=== PATIENT | female | born 1940 | race Caucasian/White ===

== ENCOUNTER → 2018-02-06 12:01 | Outpatient (CLI) | payer MEDICARE, SELFPAY ==
[2018-02-06 13:20] LABS: Absolute Lymphocyte Count 1.22 X10^3/ul (0.83-4.51); Absolute Neutrophil Count 3.6 X10^3/uL (2.0-7.7); Basophil# 0.02 X10^3/uL; Basophil% 0.4 % (0-1); Eosinophil# 0.01 X10^3/uL; Eosinophils% 0.2 % (0-5); Hematocrit 38.9 % (37-47); Hemoglobin 12.3 g/dl (12.0-15.0); Lymphocyte # 1.22 X10^3/ul (4.0); Lymphocyte % 22.3 % (19-41); Mean Corp Hgb Conc 31.6 g/gl (32-36); Mean Corpuscular Hgb 27.5 pg (27.0-32.0); Mean Platelet Vol. 9.8 fl (6.2-12.0); Monocyte# 0.61 X10^3/uL; Monocyte% 11.2 % (0-10); Neutrophil % 65.7 % (47-70); POSITIVE COUNT NO; POSITIVE DIFFERENTIAL NO; POSITIVE MORPHOLOGY NO; Platelet Count 267 K/mm3 (150-450); RBC Distribution Width CV 16.2 % (11.6-14.6); RBC Distribution Width SD 52.1 fl (35.1-43.9); Red Blood Count 4.47 M/mm3 (4.2-5.4); White Blood Count 5.5 K/mm3 (4.4-11.0)
[2018-02-06 13:33] LABS: ALB/GLOB Ratio 1.1 RATIO (0.9-2.4); AST(SGOT) 19 U/L (15-37); Alanine Aminotransfer ALT/SGPT 28 U/L (13-56); Albumin, Serum 3.8 g/dL (3.2-5.0); Alkaline Phosphatase 78 U/L (45-117); Anion Gap 5 (5-15); BUN 14 mg/dL (7-18); BUN/Creat Ratio 17.6 RATIO (10-20); Calcium,Total 9.3 mg/dL (8.5-10.1); Chloride 101 mmol/L (98-107); EST Glomerular Filtration Rate 74 mL/min (>60); Est Glom Filt Rate - Afr Amer 89 mL/min (>60); Globulin 3.6 g/dL (2.2-4.2); Glucose 84 mg/dL (74-106); Potassium 3.4 mmol/L (3.5-5.1); Protein, Total 7.4 g/dL (6.4-8.2); Sodium Level 141 mmol/L (136-145)
== END ==
PROVIDERS: Family Provider Internal Medicine; PCP Internal Medicine; Visit Provider Physician Assistant
DX: L30.9 Dermatitis, unspecified (principal); D48.5 Neoplasm of uncertain behavior of skin; L57.0 Actinic keratosis
CPT/HCPCS: 36415; 80053; 85025

== ENCOUNTER 2018-08-26 15:01 | Emergency (ER) | payer MEDICARE, SELFPAY ==
[2018-08-26 15:02] VITALS: BP 141/65; PULSE 81; RESP 16; TEMP 36.3; O2SAT 98; BMI 23.8
--- NOTE | 2018-08-26 16:07 | ED.DCSUM_ITS ---
- ER Visit Summary Date of Service: 08/26/18 Chief Complaint: Right lower extremity skin tear History of Present Illness: The patient is a 77 F presenting with right lower extremity skin tear. Patient was leaf blowing. The leaf blower came back and hit her right romano. She sustained a skin tear to her right lower extremity. No other injuries. She is able to ambulate. Last tetanus is unknown. Physical Examination: Vitals are stable. Patient is afebrile. Alert no acute distress. HEENT exam is unremarkable. Neck is supple. Lungs are clear and equal bilaterally. Heart is regular rate and rhythm. Extremities 13 cm V shaped skin tear right lower extremity, normal distal pulse Skin is warm and dry. No focal neurologic deficit. Remainder of exam is unremarkable. Emergency Department Course and Treatment: Patient was given tetanus IM. Wound was irrigated copiously with normal saline. Steri-Strips were applied. Wound was dressed. Discussed with Dr. Nieto and patient will follow-up in the office on Monday. Disposition: Discharge home Impression: Right lower extremity skin tear This note was generated with [employer]page dictation software. It may contain incorrect words, spelling, and punctuation that were not noted in review of the chart prior to signing ED Disposition - Plan for ED Patient: Chief Complaint: Wound Instructions: ED Avulsion Dermal Referrals: Irasema Everett MD [Primary Care Provider] - Koffi Nieto MD [STAFF PHYSICIAN] -
--- NOTE | 2018-08-26 16:10 | ED.DEP ---
ED Disposition - Plan for ED Patient: Chief Complaint: Wound Instructions: ED Avulsion Dermal Referrals: Irasema Everett MD [Primary Care Provider] - Koffi Nieto MD [STAFF PHYSICIAN] -
[2018-08-26] MEDS: Diphth,Pertuss(Acell),Tet Vac 0.5 ML Vial IM (16:22)
== END 2018-08-26 16:24 | disposition home or self-care (01) ==
LOC: ED 15:41
PROVIDERS: Emergency Provider Emergency Medicine; Family Provider Internal Medicine; PCP Internal Medicine
DX: S81.811A Laceration without foreign body, right lower leg, initial encounter (principal); M19.90 Unspecified osteoarthritis, unspecified site; Z23 Encounter for immunization; W20.8XXA Other cause of strike by thrown, projected or falling object, initial encounter; Y93.H2 Activity, gardening and landscaping; Y92.007 Garden or yard of unspecified non-institutional (private) residence as the place of occurrence of the external cause; Y99.8 Other external cause status
CPT/HCPCS: 90471; 90715; 99283

== ENCOUNTER → 2019-04-02 | Outpatient (CLI) | payer MEDICARE, SELFPAY ==
[2019-03-04 15:23] VITALS: BMI 26.6
[2019-04-02 12:45] LABS: CRP < 2.90 mg/L (0.0-3.0)
[2019-04-02 12:48] LABS: Erythrocyte Sedimentation Rate 26 mm/hr (0-30)
[2019-04-02 13:07] LABS: Absolute Lymphocyte Count 0.98 X10^3/ul (0.83-4.51); Absolute Neutrophil Count 4.7 X10^3/uL (2.0-7.7); Basophil# 0.01 X10^3/uL; Basophil% 0.2 % (0-1); Eosinophil# 0.01 X10^3/uL; Eosinophils% 0.2 % (0-5); Hematocrit 37.8 % (37-47); Hemoglobin 12.4 g/dl (12.0-15.0); Lymphocyte # 0.98 X10^3/ul (4.0); Lymphocyte % 15.2 % (19-41); Mean Corp Hgb Conc 32.8 g/gl (32-36); Mean Corpuscular Hgb 28.9 pg (27.0-32.0); Mean Corpuscular Volume 88.1 fL (81-99); Monocyte# 0.73 X10^3/uL; Monocyte% 11.3 % (0-10); Neutrophil # 4.69 X10^3/uL (2.7-7.7); Neutrophil % 72.8 % (47-70); Platelet Count 238 K/mm3 (150-450); RBC Distribution Width CV 15.6 % (11.6-14.6); RBC Distribution Width SD 50.1 fl (35.1-43.9); Red Blood Count 4.29 M/mm3 (4.2-5.4); White Blood Count 6.4 K/mm3 (4.4-11.0)
[2019-04-02 13:08] LABS: POSITIVE COUNT NO; POSITIVE DIFFERENTIAL NO; POSITIVE MORPHOLOGY NO
== END | disposition home or self-care (01) ==
PROVIDERS: Family Provider Internal Medicine; PCP Internal Medicine; Referring Provider Physician Assistant Surgical; Visit Provider Physician Assistant Surgical
DX: M25.561 Pain in right knee (principal); Z96.641 Presence of right artificial hip joint
CPT/HCPCS: 36415; 85025; 85652; 86140

== ENCOUNTER → 2019-04-15 | Outpatient (CLI) | payer MEDICARE, SELFPAY ==
[2019-03-04 15:23] VITALS: BMI 26.6
[2019-04-15 15:11] LABS: Absolute Lymphocyte Count 1.08 X10^3/ul (0.83-4.51); Absolute Neutrophil Count 4.8 X10^3/uL (2.0-7.7); Basophil# 0.01 X10^3/uL; Basophil% 0.2 % (0-1); Hematocrit 39.4 % (37-47); Lymphocyte # 1.08 X10^3/ul (4.0); Lymphocyte % 16.4 % (19-41); Mean Corpuscular Hgb 29.2 pg (27.0-32.0); Mean Corpuscular Volume 88.5 fL (81-99); Mean Platelet Vol. 9.5 fl (6.2-12.0); Monocyte# 0.69 X10^3/uL; Monocyte% 10.5 % (0-10); Neutrophil # 4.81 X10^3/uL (2.7-7.7); Neutrophil % 72.7 % (47-70); Platelet Count 219 K/mm3 (150-450); RBC Distribution Width CV 15.2 % (11.6-14.6); RBC Distribution Width SD 49.1 fl (35.1-43.9); Red Blood Count 4.45 M/mm3 (4.2-5.4); White Blood Count 6.6 K/mm3 (4.4-11.0)
[2019-04-15 15:12] LABS: POSITIVE COUNT NO; POSITIVE DIFFERENTIAL NO; POSITIVE MORPHOLOGY NO
[2019-04-15 15:27] LABS: AST(SGOT) 18 U/L (15-37); Alanine Aminotransfer ALT/SGPT 26 U/L (13-56); Albumin, Serum 3.8 g/dL (3.2-5.0); Alkaline Phosphatase 99 U/L (45-117); Anion Gap 4 (5-15); BUN 20 mg/dL (7-18); BUN/Creat Ratio 20.5 RATIO (10-20); Calcium,Total 9.5 mg/dL (8.5-10.1); Chloride 104 mmol/L (98-107); Creatinine, Serum 0.98 mg/dL (0.55-1.02); EST Glomerular Filtration Rate 58 mL/min (>60); Est Glom Filt Rate - Afr Amer 70 mL/min (>60); Globulin 3.7 g/dL (2.2-4.2); Glucose 97 mg/dL (74-106); Potassium 3.7 mmol/L (3.5-5.1); Protein, Total 7.5 g/dL (6.4-8.2); Sodium Level 139 mmol/L (136-145)
== END | disposition home or self-care (01) ==
LOC: MTLAB 14:40
PROVIDERS: Family Provider Internal Medicine; PCP Internal Medicine; Referring Provider Physician Assistant; Visit Provider Physician Assistant
DX: R23.3 Spontaneous ecchymoses (principal)
CPT/HCPCS: 36415; 80053; 85025; 85379

== ENCOUNTER 2019-10-01 09:20 | Day surgery (SDC) | payer MEDICARE, SELFPAY ==
--- NOTE | 2019-09-04 02:07 | HP_ITS ---
Intake Vital Signs 09/04/19 Body Mass Index (BMI) 26.6 09/04/19 Height 5 ft 5 in 09/04/19 Weight: 154 lb 09/04/19 Body Mass Index (BMI) 25.6 09/04/19 Blood Pressure 179/65 H 09/04/19 Blood Pressure Location Rt brachial 09/04/19 Blood Pressure Position Sitting 09/04/19 Respiratory Rate 16 09/04/19 Pulse Rate 57 L 09/04/19 Pulse Source Monitor 09/04/19 Temperature 98.5 F 09/04/19 Temperature Source Oral 09/04/19 Pulse Ox 99 09/04/19 Oxygen Delivery Method room air 08/20/19 Body Mass Index (BMI) 26.6 Intake Visit Reasons: C-Scope Consult Animal Attendants And Trainers Required: No Is patient in pain?: No Allergies amlodipine Allergy (Severe, Verified 09/04/19 13:56) Swelling lovastatin Allergy (Severe, Verified 09/04/19 13:56) myalgias celecoxib [From Celebrex] Allergy (Verified 09/04/19 13:56) Rash terbinafine HCl [From Lamisil] Allergy (Verified 09/04/19 13:56) Diarrhea acetaminophen [From Percocet] Adverse Reaction (Severe, Verified 09/04/19 13:56) itching lisinopril Adverse Reaction (Severe, Verified 09/04/19 13:56) Cough oxycodone [From Percocet] Adverse Reaction (Severe, Verified 09/04/19 13:56) itching Sulfa (Sulfonamide Antibiotics) Adverse Reaction (Verified 09/04/19 13:56) COUGH,BITTER TASTE sulfasalazine Adverse Reaction (Verified 09/04/19 13:56) Upset Stomach tramadol HCl [From Ultram] Adverse Reaction (Verified 09/04/19 13:56) DIZZY venlafaxine HCl [From Effexor] Adverse Reaction (Verified 09/04/19 13:56) HEARD NOISES FOR A YEAR Medications Hydrochlorothiazide 25 mg PO DAILY 04/08/14 [History Confirmed 09/04/19] Magnesium 250 mg PO DAILY 04/08/14 [History Confirmed 09/04/19] Calcium Citrate/Vitamin D3 [Hm Calcium Citrate-Vit D3 Tab] 1 ea PO BID 10/14/14 [History Confirmed 09/04/19] Tizanidine HCl 4 mg PO DINNER 10/14/14 [History Confirmed 09/04/19] Aspirin 81 mg PO DINNER 07/11/17 [History Confirmed 09/04/19] potassium chloride ER 20 mEq tablet,extended release(part/cryst) 10 meq PO DAILY tab 02/23/18 [History Confirmed 09/04/19] atorvastatin 80 mg tablet 80 mg PO QHS #90 tab 12/17/18 [Rx Confirmed 09/04/19] budesonide DR - ER 3 mg capsule,delayed,extended release 9 mg PO DINNER ea 03/04/19 [History Confirmed 09/04/19] losartan 100 mg tablet 100 mg PO DAILY #90 tab 04/02/19 [Rx Confirmed 09/04/19] ipratropium bromide 42 mcg (0.06 %) nasal spray INTRANASAL #15 09/04/19 [History Confirmed 09/04/19] sertraline 100 mg tablet PO #90 tab 09/04/19 [History Confirmed 09/04/19] [facility] Medical History Essential hypertension (Chronic) Long-term use of high-risk medication (Acute) Atherosclerotic heart disease of [place] coronary artery without angina pectoris (Chronic) Hyperlipidemia (Chronic) Closed right hip fracture (Acute) Hiatal hernia (Acute) History of DVT (deep vein thrombosis) (Acute) Idiopathic pulmonary hypertension (Acute) Osteoarthritis (Acute) Right wrist fracture (Acute) TIA (transient ischemic attack) (Acute) GERD (gastroesophageal reflux disease) (Chronic) Microscopic colitis (Chronic) Rheumatoid arthritis (Chronic) Skin cancer (Chronic) HTN (hypertension) (Inactive) Surgical History Presence of stent in coronary artery (Chronic ~06/04/08) History of Massimo fundoplication (Chronic) History of arthroscopy of right knee (Resolved) History of right hip replacement (Resolved) History of right knee joint replacement (Resolved) History of tonsillectomy (Resolved) Postsurgical percutaneous transluminal coronary angioplasty (PTCA) status (Resolved ~06/04/08) Family History Father CVA (cerebral vascular accident) Myocardial infarction Mother Heart disease Brother Myocardial infarction Brother Myocardial infarction, Onset Age: 57 Social History (Updated 09/04/19 @ 14:07 by Tommy Lagos MD) Smoking Status: Never smoker alcohol intake: never substance use type: does not use caffeine: Yes what type of physical activity do you participate in: aerobics frequency: 3-4 times per week HPI HPI HPI: HUY STOKES, is a 78 F who presents to the office today for HPI HPI Surgical H&P: Yes HPI: HUY STOKES, is a 78 F who presents to the office today for surveillance colonoscopy. The patient has a family history with a first-degree relative who had colon cancer and a daughter. She has personally had multiple colon polyps. Her most recent colonoscopy that was performed by Dr. Tran on October 11, 2016 by his account revealed 4 sessile polyps in the proximal ascendin to 6 mm in size. Tubular adenomas of pathology. He also took random colonic biopsies which did not show active colitis at that time. The patient has a known history of collagenous colitis and she is medication dependent. Currently she is denying any symptoms. No current bright red blood per rectum or melena. No current abdominal pain. She states that she has had previously a significant amount of discomfort with the procedures. Previously she has had some mild dehydration for which we have had her come in a day had a time for some IV hydration. She states that her most recent one with Dr. Tran proceeded with monitored anesthesia care and no additional IV hydration and she did well. ROS General General: No weight change, appetite, fatigue, colon cancer, breast cancer or weakness HEENT HEENT: Yes eye surgery; no difficulty swallowing, eye injury, swollen glands or hoarseness Endo Endocrine: No thyroid disease, diabetes mellitus, thyroid cancer, Hair loss, heat intolerance or cold intolerance Skin Skin: No rash or changing moles Musc Musculoskeletal: Yes arthritis; no back problems, rheumatoid arthritis, gout or joint pain Cardio Cardiovascular: Yes heart disease, high blood pressure and heart stent; no murmur, pacemaker, atrial fibrillation, heart attack, palpitations, shortness of breat with exertion or chest pain Psych Psychiatric: No depression, anxiety or hearing voices Resp Respiratory: No shortness of breath, No sleep apnea, Yes cough, No COPD, No asthma, No emphysema, No wheezing Gastro Gastrointestinal: No abdominal pain, No nausea or vomiting, No diarrhea, No constipation, No blood in stool, No acid reflux, No hemorrhoids, No ulcers, No gallbladder problem, No black,tarry stools Fly Hematologic: Yes blood thinners, No blood disorders, No bleeding, No anemia, Yes blood clots Neuro Neurologic: No system reviewed and no additional complaints, except as docu, No as per HPI, No abnormal walking, No abnormal hearing, No abnormal movements, No abnormal speech, No behavioral changes, No burning sensations, No confusion, No seizure-like activity, No unsteadiness, No dizziness, No localized weakness, No frequent falls, No headache(s), No lack of coordination, No loss of vision, No memory loss, No numbness, No other visual disturbances, No radiating pain, No restless legs, No sensory deficit, No fainting, No tingling, No tremor(s), No weakness, No other Exam Const General: cooperative, comfortable, no acute distress Nutritional Appearance: average body habitus Orientation: awake Chest Chest palpation & inspection: normal inspection of the chest Resp Effort & Inspection: normal respiratory effort Auscultation: clear to auscultation bilaterally Cardio Rate: regular rate Rhythm: regular rhythm Heart Sounds: no murmurs Other: Soft 2/6 soft ejection murmur GI Palpation: soft, no hepatosplenomegaly Neuro Cognition: normal cognition Extrem Other: Moderate bilateral lower extremity swelling Psych Affect: normal affect Assessment & Plan Problems 1. Personal history of colonic polyps Z86.010 2. Family history of colon cancer Z80.0 Plan I recommend to the patient is screening colonoscopy with possible biopsy or polypectomy as indicated. Because of her history of collagenous colitis will consider random colonic biopsies. We will utilize monitored anesthesia care because of the patient's notation of discomfort with the procedure. She is aware of the technique, benefits, risks, alternatives. She has had an opportunity to ask and have questions answered. We will schedule and proceed at her discretion. I very much appreciate the kind opportunity of assisting with her surgical care. CC: Dr. Irasema Lagos M.D., F.A.C.S. Coding Level of Care Code Off vis,est,level 2 Diagnoses Personal history of colonic polyps Z86.010 Family history of colon cancer Z80.0 09/04/19 1408 <Electronically signed by Tommy dutton MD> Date _ Tommy Lagos MD I have re-examined the patient. There are no clinical changes since date of exam.
[2019-09-04 14:07] VITALS: BMI 26.6
--- NOTE | 2019-10-01 | COLBX_PTH ---
PATIENT: HUY STOKES LOC: EN U#:[id number] AGE/SX: 79/F ROOM: RE10/01/[address]: Dr. Tommy Lagos MD : 1940 BED: DIS: 10/01/2019 SPEC #: [id number] RECD: 10/01/19 13:20 STATUS: RETA RICARDO #: [id number] ASUNCION: 10/01/19 00:[address]: Tommy Lagos DEPT: SURGICAL PATHOLOGY RECD BY: Skyler Stewart ENTERED: 10/01/19 13:21 SP TYPE: COLON BX RADHA DR: Dr. Irasema Everett MD Tissues: A - COLON BIOPSY B - Ascending colon Procedures: Surgery Specimen Level IV HEADER OPERATION: Colonoscopy (MAC) PRE-OP DIAGNOSIS: Colon polyps, family history colon cancer TISSUE SUBMITTED: A - Random colon biopsies, B - Mid ascending colon polyp MICROSCOPIC DIAGNOSIS A. Colon, random biopsy: Fragments of colonic mucosa, no pathologic diagnosis. B. Mid ascending colon polyp, biopsy: Fragments of hyperplastic polyp. BECCA:lizbeth 10/02/19 MICROSCOPIC DESCRIPTION Slides are reviewed. GROSS DESCRIPTION A - Received in fixative is one container labeled with the patient's name and designated random colon biopsy. The specimen consists of multiple irregular fragments of light west soft tissue that in aggregate measure 1.5 x 0.3 x 0.1 cm. The specimen is totally submitted in one cassette. B - Received in fixative is one container labeled with the patient's name and designated mid ascending colon polyp. The specimen consists of multiple irregular fragments of light west soft tissue that in aggregate measure 2 x 0.5 x 0.1 cm. The specimen is totally submitted in one cassette. / BECCA:lizbeth 10/01/19 TC:1 [facility]: [id number] x2
[2019-10-01 09:52] VITALS: BP 148/50; PULSE 50; RESP 16; TEMP 36.3; O2SAT 99; BMI 24.5
[2019-10-01] MEDS: Lactated Ringers 1,000 ML 100 ML IV (10:03)
[2019-10-01 11:13] VITALS: BP 116/58; BP 148/50; PULSE 89; RESP 16; TEMP 36.6; O2SAT 100
--- NOTE | 2019-10-01 11:14 | OP.COLON_ITS ---
Patient Name: Corrine Gutiérrez Procedure Date: 10/01/2019 10:34 AM Date of : 1940 Age: 79 Procedure: Colonoscopy Indications: High risk colon cancer surveillance: Personal history of colonic polyps, Family history of colon cancer in a first-degree relative Providers: Tommy Lagos MD Referring MD: Irasema Everett Medicines: See the Anesthesia note for documentation of the administered medications Patient Profile: Last Colonoscopy: September 2016. Complications: No immediate complications. Procedure: Pre-Anesthesia Assessment: - Prior to the procedure, a History and Physical was performed, and patient medications and allergies were reviewed. The patient's tolerance of previous anesthesia was also reviewed. The risks and benefits of the procedure and the sedation options and risks were discussed with the patient. All questions were answered, and informed consent was obtained. Prior Anticoagulants: The patient has taken no previous anticoagulant or antiplatelet agents. ASA Grade Assessment: II - A patient with mild systemic disease. After reviewing the risks and benefits, the patient was deemed in satisfactory condition to undergo the procedure. After I obtained informed consent, the scope was passed under direct vision. Throughout the procedure, the patient's blood pressure, pulse, and oxygen saturations were monitored continuously. The Colonoscope was introduced through the anus and advanced to the cecum, identified by appendiceal orifice and ileocecal valve. The colonoscopy was performed with moderate difficulty due to a tortuous colon. Successful completion of the procedure was aided by increasing the dose of sedation medication. The patient tolerated the procedure well. The quality of the bowel preparation was good. Scope In: 10:42:12 AM Scope Withdrawal Time 0 hours 17 minutes 18 seconds Scope Out: 11:08:52 AM Total Procedure Duration Time 0 hours 26 minutes 40 seconds Findings: Hemorrhoids were found on perianal exam. A 14 mm polyp was found in the mid ascending colon. The polyp was sessile. The polyp was removed with a cold snare. Resection was complete, but the polyp tissue was only partially retrieved. Scattered diverticula were found in the sigmoid colon. Biopsies for histology were taken with a cold forceps from the entire colon for evaluation of microscopic colitis. Impression: - Hemorrhoids found on perianal exam. - One 14 mm polyp in the mid ascending colon, removed with a cold snare. Majority resection with two hemostatic clips placed on small remainder. Specimen was retrieved. - Diverticulosis in the sigmoid colon. - Biopsies were taken with a cold forceps from the entire colon for evaluation of microscopic colitis. Recommendation: - Discharge patient to home. - Resume previous diet. - Continue present medications. - Repeat colonoscopy in 5 years for surveillance based on pathology results. - Telephone my office for pathology results in 1 week. Procedure Code(s): --- Professional --- 28291, Colonoscopy, flexible; with removal of tumor(s), polyp(s), or other lesion(s) by snare technique 66784, 59, Colonoscopy, flexible; with biopsy, single or multiple Diagnosis Code(s): --- Professional --- Z86.010, Personal history of colonic polyps K64.9, Unspecified hemorrhoids D12.2, Benign neoplasm of ascending colon Z80.0, Family history of malignant neoplasm of digestive organs K57.30, Diverticulosis of large intestine without perforation or abscess without bleeding CPT copyright 2017 [employer]. All rights reserved. The codes documented in this report are preliminary and upon processes chemical design engineer review may be revised to meet current compliance requirements. Tommy Lagos MD 10/01/2019 11:14:34 AM This report has been signed electronically. Number of Addenda: 0 Note Initiated On: 10/01/2019 10:34 AM
[2019-10-01 11:20] VITALS: BP 130/61; BP 148/50; PULSE 85; RESP 16; O2SAT 100
[2019-10-01 11:25] VITALS: BP 139/65; BP 148/50; PULSE 75; RESP 16; O2SAT 100
[2019-10-01 11:27] VITALS: BP 148/50; BP 149/64; PULSE 76; RESP 16; TEMP 37.1; O2SAT 100
[2019-10-01 12:01] VITALS: BP 148/50
== END 2019-10-01 12:01 | disposition home or self-care (01) ==
LOC: EN 09:22 → AC 09:31
PROVIDERS: Family Provider Internal Medicine; PCP Internal Medicine; Referring Provider Internal Medicine; Visit Provider Surgery
PROC: 0DJD8ZZ Inspection of Lower Intestinal Tract, Via Natural or Artificial Opening Endoscopic (ICD-10-PCS; CPT 45378; principal; 2019-10-01 10:25)
DX: Z12.11 Encounter for screening for malignant neoplasm of colon (principal); K63.5 Polyp of colon; K64.9 Unspecified hemorrhoids; K57.30 Diverticulosis of large intestine without perforation or abscess without bleeding; K52.831 Collagenous colitis; K21.9 Gastro-esophageal reflux disease without esophagitis; Z86.010 Personal history of colon polyps; Z80.0 Family history of malignant neoplasm of digestive organs; I10 Essential (primary) hypertension; I25.10 Atherosclerotic heart disease of native coronary artery without angina pectoris; E78.5 Hyperlipidemia, unspecified; M19.90 Unspecified osteoarthritis, unspecified site; M06.9 Rheumatoid arthritis, unspecified; I27.0 Primary pulmonary hypertension; Z86.718 Personal history of other venous thrombosis and embolism; Z86.73 Personal history of transient ischemic attack (TIA), and cerebral infarction without residual deficits; Z85.828 Personal history of other malignant neoplasm of skin; Z95.5 Presence of coronary angioplasty implant and graft; Z79.82 Long term (current) use of aspirin; Z79.899 Other long term (current) drug therapy
CPT/HCPCS: 45380; 88305; J7120

== ENCOUNTER 2019-11-04 16:41 | Emergency (ER) | payer MEDICARE, SELFPAY ==
[2019-11-04 16:41] VITALS: BP 155/60; PULSE 50; RESP 16; TEMP 36.5; O2SAT 100
[2019-11-04 16:42] VITALS: BP 155/60; PULSE 58; RESP 16; TEMP 36.5; O2SAT 100; BMI 25.9
--- NOTE | 2019-11-04 18:01 | RAD_ITS ---
STUDY: X-RAY - RIGHT ELBOW REASON FOR EXAM: Female, 79 years old. FALL, PAIN WORST IN ELBOW, WITH ROTATION TECHNIQUE: 3 view(s) of the elbow. COMPARISON: None. FINDINGS: An intra-articular fracture of the radial head is present. The proximal ulna and distal humerus are intact. No dislocation. Calcific tendinitis of the triceps. Elevation of the anterior fat pad. RAD/Elbow min 3 Views IMPRESSION: An intra-articular fracture of the radial head is present. Electronically Signed: Josemanuel Ness MD at 18:47 EST Tel , Service support ,
--- NOTE | 2019-11-04 18:02 | RAD_ITS ---
STUDY: X-RAY - LEFT WRIST REASON FOR EXAM: Female, 79 years old. FALL, PAIN TECHNIQUE: 3 view(s) of the wrist were obtained. COMPARISON: None. FINDINGS: Normal visualized distal radius and ulna. Normal radiocarpal articulation. There is degenerative arthrosis of the distal radioulnar articulation. Normal carpal bones. Normal carpal articulations. There is degenerative arthrosis of the carpometacarpal articulation of the thumb. Normal second through fifth carpometacarpal articulations. Normal visualized metacarpal bones. Calcifications of the triangle fibrocartilage. RAD/Wrist min 3 Views IMPRESSION: No acute osseous injury is evident. Electronically Signed: Josemanuel Ness MD at 18:52 EST Tel , Service support ,
--- NOTE | 2019-11-04 18:02 | CT_ITS ---
STUDY: CT BRAIN WITHOUT CONTRAST REASON FOR EXAM: Female, 79 years old. FALL RADIATION DOSAGE (If Supplied By Facility): CTDIvol = ( 60.81 ) mGy, DLP = ( 1044.28 ) mGycm TECHNIQUE: Transaxial CT imaging of the brain was performed without administration of intravenous contrast material. Individualized dose optimization techniques were used for this CT. COMPARISON: No relevant priors. FINDINGS: Normal soft tissue structures. Normal calvarium. Bilateral nasal bone fractures. Bilateral lens replacements. Normal size ventricles and extra-axial spaces for the patient''s age. There are areas of decreased attenuation within the white matter tracts of the supratentorial brain, consistent with microvascular disease changes. Age-related changes of the basal ganglia. Normal brainstem. Normal cerebellum. There is no intracranial hemorrhage. There are no findings of an acute ischemic infarction. Normal visualized paranasal sinuses. CT/Brain/Head without Contrast IMPRESSION: No calvarium fracture or intracranial hemorrhage. Bilateral nasal bone fractures. Electronically Signed: Josemanuel Ness MD at 18:37 EST Tel , Service support ,
--- NOTE | 2019-11-04 18:02 | RAD_ITS ---
STUDY: X-RAY - RIGHT KNEE REASON FOR EXAM: Female, 79 years old. FALL, PAIN AND BRUISING -- HX OF REPLACEMENT TECHNIQUE: 4 view(s) of the knee. COMPARISON: None. FINDINGS: Total knee arthroplasty with normal alignment. No acute fractures or dislocations. Soft tissues are intact. RAD/Knee 4 or More Views IMPRESSION: No acute osseous injury is evident. Electronically Signed: Josemanuel Ness MD at 18:51 EST Tel , Service support ,
--- NOTE | 2019-11-04 18:03 | CT_ITS ---
STUDY: CT CERVICAL SPINE WITHOUT CONTRAST REASON FOR EXAM: Female, 79 years old. FALL RADIATION DOSAGE (If Supplied By Facility): CTDIvol = ( 18.50 ) mGy, DLP = ( 381.41 ) mGycm TECHNIQUE: High resolution transaxial imaging was performed without contrast material. Sagittal and coronal images were reconstructed. Individualized dose optimization techniques were used for this CT. COMPARISON: None FINDINGS: Craniocervical junction is intact. Degenerative changes are present involving the atlantodental articulation. Normal odontoid process. Alignment is within normal limits. Multilevel degenerative disease is present. No acute fractures or dislocations are seen. Carotid calcifications. 14 mm left thyroid nodule. Consider ultrasound follow-up if clinically indicated. CT/Spine Cervical without Contras IMPRESSION: No acute osseous injury is evident. 14 mm left thyroid nodule. Consider ultrasound follow-up if clinically indicated. Comment: MRI is more sensitive than CT in detecting cord injury, ligament injury, and epidural hematoma. If there is continued clinical concern for any of these entities, MRI correlation should be considered if possible. Electronically Signed: Josemanuel Ness MD at 18:44 EST Tel , Service support ,
--- NOTE | 2019-11-04 18:03 | ED.VIS.GEN ---
History of Present Illness Chief Complaint: Trauma Informant: Patient Onset: Today Current Severity: Mild Maximum Severity: Moderate Narrative: Patient presents after a fall. She states she tripped on a rug in her basement and fell face forward onto concrete. She was wearing glasses at the time. She did not get knocked out. She did have a significant nosebleed and put cotton balls in each nare. She is complaining of mild head and neck pain along with pain to her right elbow, right knee, and left wrist. She is not on anticoagulants. Injury occurred 6 hours prior to my evaluation. - Past Medical History (1) Personal history of colonic polyps Status: Chronic (2) Atherosclerotic heart disease of [place] coronary artery without angina pectoris Status: Chronic Comment: PTCA/Stent to mid LAD 06/04/08 (3) Essential hypertension Status: Chronic (4) Hyperlipidemia Status: Chronic (5) Presence of stent in coronary artery Status: Chronic Comment: PTCA/Stent to mid LAD 06/04/08 Past Medical History - Allergies and Home Meds Allergies/Adverse Reactions: Allergies amlodipine Allergy (Severe, Verified 11/04/19 17:47) Swelling lovastatin Allergy (Severe, Verified 11/04/19 17:47) myalgias celecoxib [From Celebrex] Allergy (Verified 11/04/19 17:47) Rash terbinafine HCl [From Lamisil] Allergy (Verified 11/04/19 17:47) Diarrhea acetaminophen [From Percocet] Adverse Reaction (Severe, Verified 11/04/19 17:47) itching lisinopril Adverse Reaction (Severe, Verified 11/04/19 17:47) Cough oxycodone [From Percocet] Adverse Reaction (Severe, Verified 11/04/19 17:47) itching Sulfa (Sulfonamide Antibiotics) Adverse Reaction (Verified 11/04/19 17:47) COUGH,BITTER TASTE sulfasalazine Adverse Reaction (Verified 11/04/19 17:47) Upset Stomach COUGH tramadol HCl [From Ultram] Adverse Reaction (Verified 11/04/19 17:47) DIZZY venlafaxine HCl [From Effexor] Adverse Reaction (Verified 11/04/19 17:47) HEARD NOISES FOR A YEAR COUGH Primary Care Physician: Leonel Shrestha MD [STAFF PHYSICIAN] - 3-5 Days Irasema Everett MD [Primary Care Provider] - Jerod Christopher DO [STAFF PHYSICIAN] - 5-7 Days Prior records reviewed: Yes Surgical History: adenoidectomy, total knee arthroplasty, tonsillectomy, - Smoking Status: Never smoker - Family History Paternal Family History: Family History (Last Reviewed 09/04/19 @ 13:54 by Sonia Olivo) Father CVA (cerebral vascular accident) Myocardial infarction Mother Heart disease Brother Myocardial infarction Brother Myocardial infarction, Onset Age: 57 Family History: Reports: Heart Disease Maternal Family History: Family History (Last Reviewed 09/04/19 @ 13:54 by Sonia Olivo) Father CVA (cerebral vascular accident) Myocardial infarction Mother Heart disease Brother Myocardial infarction Brother Myocardial infarction, Onset Age: 57 Family History: Reports: Heart Disease Review of Systems General: Denies: Chills, Fever Eyes: Denies: Visual changes - bilaterally ENT: Reports: - - Nosebleed. Denies: Bilateral ear pain Cardiovascular: Denies: Chest pain Respiratory: Denies: Dyspnea, Cough Gastrointestinal: Denies: Abdominal pain, Nausea, Vomiting, Diarrhea Genitourinary: Denies: Dysuria Musculoskeletal: Reports: Arthralgias, Neck pain, Extremity Pain Neurological: Reports: Headache Hematologic: Reports: Easy bruising Allergy: Denies: Uticaria Physical Exam Vital Signs/Narrative: Vital Signs Temp Pulse Resp BP Pulse Ox 11/04/19 16:42 97.7 F L 58 L 16 155/60 H 100 11/04/19 16:41 97.7 F L 50 L 16 155/60 H 100 Inital Vital Signs reviewed: Yes General: Well nourished, Well developed Head: - - Inferior orbital ecchymosis bilaterally. Extraocular movements are intact. Superficial abrasions noted over the nasal bridge. Cotton balls are noted in each nare. Portion of cottonball that is visible is clean with no saturation of blood. Eyes: Perrl, EOMI ENT: Moist mucous membranes Neck: Supple, - - Mild C-spine tenderness. Cardiovascular: Regular rate, Regular rhythm Respiratory: No distress, CTA bilaterally, Chest nontender Abdomen: Soft, Nontender Extremities: - - Right upper extremity: Tenderness location at the right elbow, worse along the radial head. She does have pain with pronation and supination. No tenderness at the wrist or shoulder. Right lower extremity: Ecchymosis noted over the anterior right knee. Good range of motion. Left upper extremity: Mild tenderness around the left wrist. No edema or ecchymosis noted. Neurological: Alert, Oriented x3 Psychological: Normal affect Diagnostic/Tx/Re-eval Impressions Elbow X-Ray 11/04/19 18:01 IMPRESSION: An intra-articular fracture of the radial head is present. Electronically Signed: Josemanuel Ness MD at 18:47 EST Tel , Service support , Brain CT 11/04/19 18:02 IMPRESSION: No calvarium fracture or intracranial hemorrhage. Bilateral nasal bone fractures. Electronically Signed: Josemanuel Ness MD at 18:37 EST Tel , Service support , Knee X-Ray 11/04/19 18:02 IMPRESSION: No acute osseous injury is evident. Electronically Signed: Josemanuel Ness MD at 18:51 EST Tel , Service support , Wrist X-Ray 11/04/19 18:02 IMPRESSION: No acute osseous injury is evident. Electronically Signed: Josemanuel Ness MD at 18:52 EST Tel , Service support , Cervical Spine CT 11/04/19 18:03 IMPRESSION: No acute osseous injury is evident. 14 mm left thyroid nodule. Consider ultrasound follow-up if clinically indicated. Comment: MRI is more sensitive than CT in detecting cord injury, ligament injury, and epidural hematoma. If there is continued clinical concern for any of these entities, MRI correlation should be considered if possible. Electronically Signed: Josemanuel Ness MD at 18:44 EST Tel , Service support , 11/04/19 18:01 Elbow min 3 Views [RAD] Stat 11/04/19 18:02 CT Head [Brain/Head without Contrast] [CT] Stat Knee 4 or More Views [RAD] Stat Wrist min 3 Views [RAD] Stat 11/04/19 18:03 CT Cervical [Spine Cervical without Contras] [CT] Stat - Medical Decision Making Patient is given morphine IM for pain control. Test results are discussed with patient and family at bedside. Right upper extremity is placed in a posterior splint plus sugar tong. Following splint application she has good cap refill distally with good sensation. She will follow-up Dr. Christopher or Dr. Amaro whom she has seen in the past. Cotton balls are removed from her nares. She has very minimal bleeding but no definitive source can be visualized. Merisel packing with the plastic tube to the center is placed bilaterally. Patient is able to breathe through her nose with this without difficulty. No further bleeding is noted. Because she does have epistaxis with nasal bone fractures she is covered with an antibiotic. She will follow-up with ENT. Patient for Keflex as well as [place]um [place] was sent to local pharmacy. ED Disposition - Plan for ED Patient: Disposition: Home or Assisted Living Diagnosis: Radial head fracture, closed, Nasal bone fractures, Epistaxis due to trauma Instructions: Elbow Fracture, FALL, Mechanical, FRACTURE, Nose (with X-Ray), HEAD INJURY, No Wake-Up (Adult), NASAL PACKING, Anterior (Removable) Prescriptions: Cephalexin [Keflex] 500 mg PO Q12 #14 cap Transmission Status: Received by DAVID VIDAL-[address] PAZ Hydrocodone Bitart/Apap 5-325 [Alum [place] 5MG-325MG] 1 tab PO Q6H PRN PRN 3 Days #10 tab PRN Reason: Pain Transmission Status: Received by DAVID VIDAL-[address] BALDEV Referrals: Irasema Everett MD [Primary Care Provider] - Leonel Shrestha MD [STAFF PHYSICIAN] - 3-5 Days Jerod Christopher DO [STAFF PHYSICIAN] - 5-7 Days
[2019-11-04] MEDS: Morphine 4 MG/ML Syringe IM ×2 (18:47→21:37)
[2019-11-04 20:41] VITALS: BP 148/62; PULSE 59; RESP 16; O2SAT 97
[2019-11-04] MEDS: Oxymetazoline 0.05% 1 SPRAY SPRAY.BTL 2 SPRAY NASAL (21:37)
[2019-11-04] MEDS: Cephalexin 250 MG Capsule 500 MG PO (21:37)
[2019-11-04 22:07] VITALS: BP 146/72; PULSE 55; RESP 17; O2SAT 96
--- NOTE | 2019-11-04 22:08 | ED.RN ---
PT OBSERVED ON SHOT TIME FOR GREATER THAN 15 MINUTES. NO REACTION NOTED BY THIS NURSE. PT D/C.
== END 2019-11-04 22:09 | disposition home or self-care (01) ==
PROVIDERS: Emergency Provider Emergency Medicine; PCP Internal Medicine
DX: S02.2XXA Fracture of nasal bones, initial encounter for closed fracture (principal); S52.121A Displaced fracture of head of right radius, initial encounter for closed fracture; S80.01XA Contusion of right knee, initial encounter; W18.09XA Striking against other object with subsequent fall, initial encounter; Y93.9 Activity, unspecified; Y92.008 Other place in unspecified non-institutional (private) residence as the place of occurrence of the external cause; R04.0 Epistaxis; I25.10 Atherosclerotic heart disease of native coronary artery without angina pectoris; I10 Essential (primary) hypertension; E78.5 Hyperlipidemia, unspecified; Z95.5 Presence of coronary angioplasty implant and graft
CPT/HCPCS: 29105; 30901; 29405; 70450; 72125; 73080; 73110; 73564; 96372; 99283

== ENCOUNTER → 2019-12-04 09:20 | Outpatient (CLI) | payer MEDICARE, SELFPAY ==
[2019-11-04 16:42] VITALS: BMI 25.9
--- NOTE | 2019-12-04 09:28 | US_ITS ---
HISTORY: NODULES COMPARISON: 10/19/2017 TECHNIQUE: Grayscale and color Doppler sonography of the thyroid gland. FINDINGS: RIGHT LOBE: 4.9 x 2.1 x 1.7 cm LEFT LOBE: 4.3 x 2.0 x 1.7 cm ISTHMUS: 3 mm Heterogeneous thyroid. Heterogeneous right lobe nodule measuring 1.5 x 0.6 x 1.2 cm it is smoothly marginated without distinct calcification with isoechoic and hypoechoic components, previously measuring 1.7 x 0.6 x 1.2 cm. TIRADS 4. Mildly hypoechoic, smoothly marginated, noncalcified 9 x 4 x 6 mm right thyroid lobe nodule, previously 9 x 5 x 7 mm.TIRADS 4. Small right thyroid lobe nodule cyst measuring 6 mm, previously 5 mm. TIRADS 1. Mildly hypoechoic, smoothly marginated, noncalcified right thyroid lobe nodule measuring 9 x 8 x 7 mm, previously 10 x 10 x 6 mm. TIRADS 4. Slightly hypoechoic, smoothly marginated nodule, noncalcified in the right inferior thyroid lobe measures 6 x 4 x 6 mm, previously 7 x 4 x 7 mm. TIRADS 4. Heterogeneous mixed solid and cystic, smoothly marginated left thyroid lobe nodule without definite calcification measuring 1.9 x 1.4 x 1.6 cm, previously 1.6 x 1.2 x 1.2 cm. TIRADS 3. Mildly hypoechoic, smoothly marginated, noncalcified left thyroid lobe nodule measuring 1.1 x 0.9 x 0.9 cm, previously 1.0 x 1.0 x 0.7 cm. TIRADS 4. US/Thyroid IMPRESSION: Mild increase in size of mixed solid and cystic left thyroid lobe nodule. Minimal change in multiple bilateral thyroid nodules otherwise. at 0507 Reported and signed by: Yasmin Ye MD Electronically Signed: Yasmin Ye MD at 5:07 EST Tel , Service support ,
== END ==
PROVIDERS: PCP Internal Medicine; Referring Provider Surgery; Visit Provider Surgery
DX: E04.1 Nontoxic single thyroid nodule (principal)
CPT/HCPCS: 76536

== ENCOUNTER → 2020-01-01 16:45 | Outpatient (CLI) | payer MEDICARE, SELFPAY ==
--- NOTE | 2020-01-01 | ASPS_PTH ---
PATIENT: HUY STOKES LOC: [facility] U#:[id number] AGE/SX: 85/F ROOM: RE01/01/[address]: Dr. Tommy Lagos MD : 1940 BED: DIS: SPEC #: [id number] RECD: 01/01/20 16:40 STATUS: RETA RETerrence #: [id number] ASUNCION: 01/01/20 00:[address]: Tommy Lagos DEPT: CYTOLOGY RECD BY: Skyler Stewart ENTERED: 01/02/20 07:35 SP TYPE: ASPIRATION OTHR DR: Dr. Irasema Everett MD Tissues: A - Thyroid gland, NOS B - Thyroid gland, NOS Procedures: Special Stain Group II Cytology Other HEADER OPERATION: Bilateral thyroid FNA PRE-OP DIAGNOSIS: Bilateral thyroid nodules TISSUE SUBMITTED: A - Right thyroid slides x6, B - Left thyroid slides x4 DIAGNOSIS CYTOLOGY A. Right thyroid nodule, FNA (smears): A few clusters of benign follicular cells noted. The specimen is limited in evaluation due to lack of adequate number of follicular cells. B. Left thyroid nodule, FNA (smears): Consistent with benign colloid nodule. Adequate for evaluation. See comment. BECCA:lizbeth 01/02/20 COMMENT B. Correlation with clinical, radiologic findings and appropriate follow up are necessary. CYTOLOGY STUDY Slides are reviewed. CYTOLOGY GROSS A - Received are six smears labeled with the patient's name and designated per the requisition as right thyroid. Submitted for staining. B - Received are four smears labeled with the patient's name and designated per the requisition as left thyroid. Submitted for staining. / lizbeth 01/02/20 TC:5 CPT: 29172 x2
--- NOTE | 2020-01-01 | ASPS_PTH ---
PATIENT: HUY STOKES LOC: [facility] U#:[id number] AGE/SX: 85/F ROOM: RE01/01/[address]: Dr. Tommy Lagos MD : 1940 BED: DIS: SPEC #: [id number] RECD: 01/01/20 16:40 STATUS: RETA RETerrence #: [id number] ASUNCION: 01/01/20 00:[address]: Tommy Lagos DEPT: CYTOLOGY RECD BY: Skyler Stewart ENTERED: 01/02/20 07:35 SP TYPE: ASPIRATION OTHR DR: Dr. Irasema Everett MD Tissues: A - Thyroid gland, NOS B - Thyroid gland, NOS Procedures: Special Stain Group II Cytology Other HEADER OPERATION: Bilateral thyroid FNA PRE-OP DIAGNOSIS: Bilateral thyroid nodules TISSUE SUBMITTED: A - Right thyroid slides x6, B - Left thyroid slides x4 DIAGNOSIS CYTOLOGY A. Right thyroid nodule, FNA (smears): Consistent with benign follicular nodule. Adequate for evaluation. B. Left thyroid nodule, FNA (smears): Consistent with benign colloid nodule. Adequate for evaluation. See comment. SJ:lizbeth 01/02/20 SJ:lizbeth 01/03/20 COMMENT B. Correlation with clinical, radiologic findings and appropriate follow up are necessary. Case has been reviewed in consultation with Dr. Joseph who concurs with the above diagnosis. IDC:AM CYTOLOGY STUDY Slides are reviewed. CYTOLOGY GROSS A - Received are six smears labeled with the patient's name and designated per the requisition as right thyroid. Submitted for staining. B - Received are four smears labeled with the patient's name and designated per the requisition as left thyroid. Submitted for staining. / lizbeth 01/02/20 TC:5 CPT: 51528 x2
[2020-01-01 14:32] VITALS: BMI 25.9
== END ==
PROVIDERS: PCP Internal Medicine; Referring Provider Surgery; Visit Provider Surgery
DX: E04.1 Nontoxic single thyroid nodule (principal)
CPT/HCPCS: 88161; 88313

== ENCOUNTER → 2020-06-12 10:55 | Outpatient (CLI) | payer MEDICARE, SELFPAY ==
[2020-06-11 10:12] VITALS: BMI 26.2
== END ==
PROVIDERS: PCP Internal Medicine; Referring Provider Internal Medicine Cardiovascular Disease; Visit Provider Internal Medicine Cardiovascular Disease
DX: I25.10 Atherosclerotic heart disease of native coronary artery without angina pectoris (principal); I10 Essential (primary) hypertension; E78.5 Hyperlipidemia, unspecified; R00.1 Bradycardia, unspecified; Z95.5 Presence of coronary angioplasty implant and graft; Z79.899 Other long term (current) drug therapy
CPT/HCPCS: 93225; 93226

== ENCOUNTER → 2020-06-24 08:33 | Outpatient (CLI) | payer MEDICARE, SELFPAY ==
[2020-06-11 10:12] VITALS: BMI 26.2
[2020-06-24 10:02] LABS: AST(SGOT) 19 U/L (15-37); Alanine Aminotransfer ALT/SGPT 23 U/L (13-56); Albumin, Serum 3.5 g/dL (3.2-5.0); Alkaline Phosphatase 77 U/L (45-117); Bilirubin, Direct 0.23 mg/dL (0.00-0.30); Cholesterol 187 mg/dL (200); Globulin 3.6 g/dL (2.2-4.2); High Density Lipoprotein 95 mg/dL; Protein, Total 7.1 g/dL (6.4-8.2); Triglycerides 55 mg/dL; Very Low Density Lipoprotein 11 mg/dL (5-40)
== END ==
PROVIDERS: PCP Internal Medicine; Referring Provider Internal Medicine Cardiovascular Disease; Visit Provider Internal Medicine Cardiovascular Disease
DX: E78.00 Pure hypercholesterolemia, unspecified (principal)
CPT/HCPCS: 36415; 80061; 80076

== ENCOUNTER → 2020-10-14 09:37 | Outpatient (CLI) | payer MEDICARE, SELFPAY ==
[2020-06-11 10:12] VITALS: BMI 26.2
--- NOTE | 2020-10-14 09:39 | CDU_ITS ---
Reason For Study: Carotid stenosis Rt. Velocities/BP Lt. Velocities/BP Prox CCA 124.7/9.7. cm/sec. Prox CCA 91.5/8 cm/sec. Mid CCA 112/11.5 cm/sec. Mid CCA 89.3/10.2 cm/sec. Dist CCA 101/13.3 cm/sec. Dist CCA 83.8/12.4 cm/sec. Prox ICA 71.6/7.7 cm/sec. Prox ICA 72.8/10.2 cm/sec. Mid ICA 81.4/11.4 cm/sec. Mid ICA 50.8/9.1 cm/sec. Dist ICA 93.7/10.2 cm/sec. Dist ICA 98.1/16.8 cm/sec. Rt. ICA/CCA = 0.8. Lt. ICA/CCA = 1.1. Prox ECA 81.4 cm/sec. Prox ECA 78.3/6.9 cm/sec. Rt. Vert. 44.3/6.9 cm/sec. Lt. Vert. 45/8.8 cm/sec. Right Extracranial There is homogeneous, smooth atherosclerotic plaque noted in the right common carotid artery. There is heterogeneous, irregular atherosclerotic plaque noted in the right internal carotid artery. There is intimal thickening but no significant atherosclerotic plaque noted in the right external carotid artery. Antegrade flow is noted in the right vertebral artery. Left Extracranial There is homogeneous, smooth atherosclerotic plaque noted in the left common carotid artery. There is heterogeneous, irregular atherosclerotic plaque noted in the left internal carotid artery. There is intimal thickening but no significant atherosclerotic plaque noted in the left external carotid artery. Antegrade flow is noted in the left vertebral artery. Procedure Carotid Duplex 97226. This is a Carotid Duplex examination using B-mode, color flow and specral Doppler. Exam performed in department. Interpretation Summary Minimal irregular plaque at the proximal right internal carotid artery with less than 50% stenosis Less than 50% stenosis right external carotid Minimal irregular plaque at the proximal left internal carotid artery with less than 50% stenosis Less than 50% stenosis left external carotid Patent and antegrade vertebrals bilaterally No change from the previous examination of August 26, 2013 Ordering Physician: Tommy Lagos Referring Physician: Irasema Everett M.D. Performed By: Sharona Cash RVT
== END ==
PROVIDERS: PCP Internal Medicine; Referring Provider Surgery; Visit Provider Surgery
DX: I65.23 Occlusion and stenosis of bilateral carotid arteries (principal)
CPT/HCPCS: 93880

== ENCOUNTER 2020-11-20 13:32 | Outpatient (RCR) | payer MEDICARE, SELFPAY ==
[2020-06-11 10:12] VITALS: BMI 26.2
== END 2020-11-20 23:59 ==
LOC: IMMUN 13:32
PROVIDERS: PCP Internal Medicine; Visit Provider Family Medicine
DX: Z23 Encounter for immunization (principal)
CPT/HCPCS: 0011A; 0012A

== ENCOUNTER → 2021-03-24 09:51 | Outpatient (CLI) | payer MEDICARE, SELFPAY ==
[2021-03-17 11:55] VITALS: BMI 27.5
--- NOTE | 2021-03-24 09:58 | ECHOD_ITS ---
Reason For Study: CAD Procedure This was a 2D Doppler, Color Flow transthoracic echocardiogram. Myocardial strain analysis was performed in this exam to aid in the assessment of cardiac function. The exam was of adequate technical quality. Exam performed in department. Left Ventricle Normal LV size. Left ventricular systolic function is normal. The estimated ejection fraction is 65 %. The global longitudinal strain = -24 % (normal). There is evidence of diastolic dysfunction. No regional wall motion abnormalities noted. Right Ventricle Normal RV size. Normal systolic function. Atria The left atrium is moderately enlarged. Normal right atrium. No doppler evidence for ASD. Mitral Valve There is moderate mitral annular calcification. Extension of the mitral annular calcification on the base of the posterior mitral valve leaflet. Mild (1+) mitral valve insufficiency. Tricuspid Valve Normal tricuspid valve. Trivial tricuspid valve insufficiency. Right ventricular systolic pressure estimated to be 32 mmHg. Aortic Valve Trisinus/trileaflet aortic valve. Mild diffuse aortic valve thickening. Mild focal aortic valve calcification. Pulmonic Valve The pulmonic valve is not well visualized. Trivial pulmonic valve insufficiency. Great Vessels Normal sized aortic root. Pericardium/Pleural No pericardial effusion. MMode/2D Measurements & Calculations LVIDd: 4.5 cm IVSd: 1.0 cm Ao root diam: 3.0 cm LVIDs: 2.3 cm LVPWd: 0.99 cm RVDd: 3.1 cm FS: 48.4 % LAV(MOD-bp): 77.7 ml LVAd ap4: 24.6 cm2 LVAd ap2: 27.5 cm2 LAV(MOD-bp) Indexed: 43.3 ml/m2 LVLd ap4: 6.8 cm LVLd ap2: 7.4 cm LAV(MOD-sp2): 92.7 ml EDV(MOD-sp4): 73.2 ml EDV(MOD-sp2): 88.4 ml LAV(MOD-sp4): 65.5 ml EDV(sp4-el): 75.9 ml EDV(sp2-el): 86.7 ml LVAs ap4: 11.7 cm2 LVAs ap2: 13.6 cm2 LVLs ap4: 5.9 cm LVLs ap2: 6.2 cm ESV(MOD-sp4): 19.7 ml ESV(MOD-sp2): 25.3 ml ESV(sp4-el): 19.7 ml ESV(sp2-el): 25.1 ml EF(MOD-sp4): 73.1 % EF(MOD-sp2): 71.3 % EF(sp4-el): 74.1 % SV(MOD-sp4): 53.6 ml SV(MOD-sp2): 63.0 ml SV(sp4-el): 56.2 ml LA dimension(2D): 4.8 cm LA A4 area: 22.3 cm2 RA A4 area: 17.6 cm2 Doppler Measurements & Calculations MV E max rosalio: 126.8 cm/sec Lat Peak E' Rosalio: 7.0 cm/sec Med Peak E' Rosalio: 7.1 cm/sec MV A max rosalio: 141.4 cm/sec E/E' lat: 18.0 E/E' med: 17.8 MV E/A: 0.90 Ao V2 max: 165.2 cm/sec LV V1 max: 120.7 cm/sec PA V2 max: 135.7 cm/sec Ao max P.9 mmHg LV V1 max P.8 mmHg TR max rosalio: 270.4 cm/sec TR max P.3 mmHg ECHO/Echo Complete Interpretation Summary Left ventricular systolic function is normal. The estimated ejection fraction is 65 %. The global longitudinal strain = -24 % (normal). The left atrium is moderately enlarged. There is moderate mitral annular calcification. Extension of the mitral annular calcification on the base of the posterior mitr al valve leaflet. Mild (1+) mitral valve insufficiency. Trivial tricuspid valve insufficiency. Mild diffuse aortic valve thickening. Mild focal aortic valve calcification. Trivial pulmonic valve insufficiency. Right ventricular systolic pressure estimated to be 32 mmHg. There is evidence of diastolic dysfunction. Ordering Physician: Gianni Garcia Referring Physician: Irasema Everett M.D. Performed By: Lindy Saunders RDCS
[2021-03-24 11:57] LABS: Anion Gap 5 (5-15); BUN 28 mg/dL (7-18); BUN/Creat Ratio 28.1 RATIO (10-20); Chloride 103 mmol/L (98-107); EST Glomerular Filtration Rate 57 mL/min (>60); Est Glom Filt Rate - Afr Amer 68 mL/min (>60); Glucose 86 mg/dL (74-106); Potassium 3.6 mmol/L (3.5-5.1); Sodium Level 140 mmol/L (136-145)
== END ==
PROVIDERS: PCP Internal Medicine; Referring Provider Internal Medicine Cardiovascular Disease; Visit Provider Internal Medicine Cardiovascular Disease
DX: I25.10 Atherosclerotic heart disease of native coronary artery without angina pectoris (principal); E78.5 Hyperlipidemia, unspecified; I10 Essential (primary) hypertension; R69 Illness, unspecified; Z95.5 Presence of coronary angioplasty implant and graft
CPT/HCPCS: 36415; 80048; 83735; 93306

== ENCOUNTER → 2021-06-10 13:58 | Outpatient (CLI) | payer MEDICARE, SELFPAY ==
--- NOTE | 2021-06-10 14:02 | RAD_ITS ---
STUDY: X-RAY - PELVIS AND LEFT HIP REASON FOR EXAM: Female, 80 years old. Left hip pain radiating into the leg. TECHNIQUE: 3 views of the pelvis and hip. COMPARISON: Pelvis and right hip, 07/11/2017. FINDINGS: There is a non-specific bowel gas pattern. Normal visualized soft tissue structures. Normal bilateral iliac wings, sacroiliac joints and visualized sacrum. Normal bilateral superior and inferior pubic rami. Normal pubic symphysis. Normal bilateral ischial tuberosities. Stable right total hip arthroplasty. Normal visualized femoral head. Normal acetabulum. There is mild articular joint space narrowing of the hip. RAD/HIP, UNI W/ Pelvis 2-3 Views IMPRESSION: 1. Degenerative changes of the left hip. This appears similar to the previous examination. No acute fracture or dislocation. 2. Stable right total hip arthroplasty. Electronically Signed: Luciano Grant DO at 17:04 EDT Tel [phone], Service support ,
== END ==
PROVIDERS: PCP Internal Medicine; Referring Provider Nurse Practitioner Family; Visit Provider Nurse Practitioner Family
DX: M25.552 Pain in left hip (principal)
CPT/HCPCS: 73502

== ENCOUNTER → 2021-06-22 08:25 | Outpatient (CLI) | payer MEDICARE, SELFPAY ==
[2021-06-22 10:50] LABS: Anion Gap 4 (5-15); BUN 30 mg/dL (7-18); BUN/Creat Ratio 28.6 RATIO (10-20); Calcium,Total 9.3 mg/dL (8.5-10.1); Chloride 103 mmol/L (98-107); Creatinine, Serum 1.05 mg/dL (0.55-1.02); EST Glomerular Filtration Rate 53 mL/min (>60); Est Glom Filt Rate - Afr Amer 64 mL/min (>60); Glucose 91 mg/dL (74-106); Potassium 4.1 mmol/L (3.5-5.1); Sodium Level 138 mmol/L (136-145)
== END ==
PROVIDERS: PCP Internal Medicine; Referring Provider Internal Medicine Cardiovascular Disease; Visit Provider Internal Medicine Cardiovascular Disease
DX: I10 Essential (primary) hypertension (principal); I25.10 Atherosclerotic heart disease of native coronary artery without angina pectoris; R60.9 Edema, unspecified; Z95.5 Presence of coronary angioplasty implant and graft
CPT/HCPCS: 36415; 80048

== ENCOUNTER 2021-07-19 13:14 | Outpatient (CLI) | payer MEDICARE, SELFPAY ==
[2021-07-19 13:35] VITALS: BP 121/51; PULSE 69; RESP 16; TEMP 37.2; O2SAT 99; BMI 26.6
[2021-07-19] MEDS: 0.9% Saline Lock 10 ML Syringe IV (13:39)
[2021-07-19 14:16] VITALS: BP 136/54; PULSE 65; RESP 16; TEMP 36.9; O2SAT 98
[2021-07-19 15:16] VITALS: BP 150/49; PULSE 56; RESP 16; TEMP 36.3; O2SAT 100
== END 2021-07-19 15:16 | disposition home or self-care (01) ==
LOC: MS3OUT 13:15 → MS3 13:15
PROVIDERS: PCP Internal Medicine; Referring Provider Nurse Practitioner Adult Health; Visit Provider Nurse Practitioner Adult Health
DX: Z23 Encounter for immunization (principal); U07.1 COVID-19
CPT/HCPCS: J7050; M0243; A4216; Q0244

== ENCOUNTER → 2021-09-28 09:01 | Outpatient (CLI) | payer MEDICARE, SELFPAY ==
[2021-09-28 12:38] LABS: AST(SGOT) 21 U/L (15-37); Alanine Aminotransfer ALT/SGPT 27 U/L (13-56); Albumin, Serum 3.5 g/dL (3.2-5.0); Alkaline Phosphatase 89 U/L (45-117); Bilirubin, Direct 0.21 mg/dL (0.00-0.30); Cholesterol 172 mg/dL (200); Globulin 3.9 g/dL (2.2-4.2); High Density Lipoprotein 89 mg/dL; Protein, Total 7.4 g/dL (6.4-8.2); Triglycerides 54 mg/dL; Very Low Density Lipoprotein 11 mg/dL (5-40)
== END ==
PROVIDERS: PCP Internal Medicine; Referring Provider Internal Medicine Cardiovascular Disease; Visit Provider Internal Medicine Cardiovascular Disease
DX: E78.00 Pure hypercholesterolemia, unspecified (principal)
CPT/HCPCS: 36415; 80061; 80076

== ENCOUNTER 2022-01-04 13:18 | Outpatient (CLI) | payer MEDICARE, SELFPAY | END 2022-01-04 23:59 | disposition home or self-care (01) | LOC: LABSPEC 13:21 | PROVIDERS: PCP Internal Medicine; Referring Provider Obstetrics & Gynecology; Visit Provider Obstetrics & Gynecology | DX: N39.3 Stress incontinence (female) (male) (principal); Z79.899 Other long term (current) drug therapy | CPT/HCPCS: 87086 ==

== ENCOUNTER 2022-01-07 09:49 | Outpatient (CLI) | payer MEDICARE, SELFPAY ==
--- NOTE | 2022-01-07 09:51 | US_ITS ---
STUDY: COMPLETE NON-OBSTETRICAL ULTRASOUND EXAMINATION 0959 HOURS ON 01/07/2022 REASON FOR EXAM: 81-year-old female with stress incontinence. TECHNIQUE: A complete non-obstetrical pelvic ultrasound examination was performed per protocol. TECHNICAL QUALITY: Adequate. COMPARISON: None. FINDINGS: Mildly atrophic retroverted uterus is noted measuring 5.8 cm in length by 2.5 cm AP diameter by 3.5 summation with. There is endometrial thickness of 4 mm. The endometrium is hyperechoic. No demonstration of uterine fibroids or other cystic or solid mass lesions. There is a normal-appearing cervix. Both ovaries are not visualized. There is no evidence of adnexal masses or free fluid in the cul-de-sac. US/Pelvic (Non ) IMPRESSION: 1. Mildly atrophic retroverted uterus with endometrial thickness of 4 mm. 2. The endometrium is hyperechoic. 3. No evidence of uterine fibroids or other cystic or solid mass lesions. 4. Normal appearing cervix. 5. Both ovaries are not visualized. 6. No evidence of adnexal masses or free fluid in the cul-de-sac. Electronically Signed: Robert Brown MD at 18:23 EDT ,
== END 2022-01-07 23:59 | disposition home or self-care (01) ==
LOC: US 09:50
PROVIDERS: PCP Internal Medicine; Referring Provider Obstetrics & Gynecology; Visit Provider Obstetrics & Gynecology
DX: N39.3 Stress incontinence (female) (male) (principal)
CPT/HCPCS: 76856

== ENCOUNTER 2022-01-14 15:57 | Outpatient (CLI) | payer MEDICARE, SELFPAY ==
--- NOTE | 2022-01-14 16:00 | US_ITS ---
EXAM: US renal. HISTORY: URINARY RETENTION TECHNIQUE: US Kidney(s) complete (eg, kidneys and bladder) COMPARISON: None. LIMITATIONS: None. RIGHT KIDNEY Size: 10.1 cm x 4.6 cm x 5.1 cm. Echogenicity: Normal. Parenchymal thickness: Normal. 1.5 cm cortex. Hydronephrosis: None. Calculi: None. Cysts/masses: None. LEFT KIDNEY Size: 10.1 cm x 4.1 cm x 4.3 cm. Echogenicity: Normal. Parenchymal thickness: Normal. 1.3 cm cortex. Hydronephrosis: None. Calculi: None. Cysts/masses: None. BLADDER: Bladder volume calculated to be 88 cc with normal wall. Neither ureteral jet is seen on limited color Doppler exam of the bladder. OTHER: Nonvisualized aorta due to bowel gas. IMPRESSION: Normal renal ultrasound. Electronically Signed: Linda Vazquez MD at 22:05 EDT , US/Kidney and Bladder
== END 2022-01-14 23:59 | disposition home or self-care (01) ==
LOC: US 15:59
PROVIDERS: PCP Internal Medicine; Referring Provider Urology; Visit Provider Urology
DX: R39.14 Feeling of incomplete bladder emptying (principal)
CPT/HCPCS: 76770

== ENCOUNTER 2022-01-21 09:56 | Outpatient (CLI) | payer MEDICARE, SELFPAY ==
--- NOTE | 2022-01-21 10:05 | BI_ITS ---
MAMMOGRAPHY - BILATERAL SCREENING REASON FOR EXAM: Female, 81 years old. Routine annual screening examination. PERTINENT HISTORY: Non-contributory. TECHNIQUE: Digital bilateral breast nayla (3D mammographic acquisition) in the CC and MLO projections. 2-D mediolateral oblique (MLO) and craniocaudad (CC) views of both breasts were obtained. CAD: Full Field Digital Mammography with Computer Added Detection was performed. COMPARISON: Comparison is made with prior abdomen examination dated 01/20/2021. FINDINGS: Breast Composition: The breasts are extremely dense, which lowers the sensitivity of mammography. There are no dominant masses or suspicious calcifications. No other significant abnormalities are identified. There has been no significant change since the prior study. BI/SCRN MAMM (CAD)W/NAYAL BILAT IMPRESSION: Stable bilateral screening mammogram. Yearly follow-up mammogram recommended. (A) ASSESSMENT CATEGORY: BIRADS Category 1: Negative. A letter regarding these results will be sent to the patient by the facility within 30 days. Approximately 10% of breast cancers are not detected by mammography. A normal mammogram should not delay biopsy of a clinically suspicious abnormality. [id number] Electronically Signed: Shan Aguilar MD at 12:59 EDT ,
== END 2022-01-21 23:59 | disposition home or self-care (01) ==
LOC: OPBI 10:04
PROVIDERS: PCP Internal Medicine; Visit Provider Obstetrics & Gynecology
DX: Z12.31 Encounter for screening mammogram for malignant neoplasm of breast (principal)
CPT/HCPCS: 77063; 77067

== ENCOUNTER → 2022-02-07 | Outpatient (CLI) | payer MEDICARE, SELFPAY ==
[2022-02-07 10:12] LABS: Absolute Lymphocyte Count 1.07 X10^3/uL (0.83-4.51); Absolute Neutrophil Count 4.6 X10^3/uL (2.0-7.7); Basophil# 0.03 X10^3/uL; Basophil% 0.5 % (0-1); Eosinophil# 0.02 X10^3/uL; Eosinophils% 0.3 % (0-5); Hematocrit 37.4 % (37-47); Hemoglobin 12.1 g/dL (12.0-15.0); Lymphocyte # 1.07 X10^3/ul (0.83-4.51); Lymphocyte % 17.1 % (19-41); Mean Corp Hgb Conc 32.4 g/dL (32-36); Mean Corpuscular Hgb 31.1 pg (27.0-32.0); Mean Corpuscular Volume 96.1 fL (81-99); Mean Platelet Vol. 9.9 fl (6.2-12.0); Monocyte# 0.52 X10^3/uL; Monocyte% 8.3 % (0-10); NRBC Flagged by Analyzer 0 % (0-5); Neutrophil # 4.61 X10^3/uL (2.7-7.7); Neutrophil % 73.5 % (47-70); Platelet Count 236 K/mm3 (150-450); RBC Distribution Width CV 14.1 % (11.6-14.6); RBC Distribution Width SD 49.9 fl (35.1-43.9); Red Blood Count 3.89 M/mm3 (4.2-5.4); White Blood Count 6.3 K/mm3 (4.4-11.0)
[2022-02-07 10:25] LABS: Vitamin D,25 Hydroxy 85.7 ng/mL
[2022-02-07 10:43] LABS: ALB/GLOB Ratio 0.9 RATIO (0.9-2.4); AST(SGOT) 18 U/L (15-37); Alanine Aminotransfer ALT/SGPT 25 U/L (13-56); Albumin, Serum 3.3 g/dL (3.2-5.0); Alkaline Phosphatase 70 U/L (45-117); Anion Gap 5 (5-15); BUN 32 mg/dL (7-18); BUN/Creat Ratio 26.7 RATIO (10-20); Calcium,Total 9.1 mg/dL (8.5-10.1); Chloride 104 mmol/L (98-107); Cholesterol 169 mg/dL (200); EST Glomerular Filtration Rate 46 mL/min (>60); Est Glom Filt Rate - Afr Amer 55 mL/min (>60); Free T3 2.2 pg/mL (2.18-3.98); Globulin 3.5 g/dL (2.2-4.2); Glucose 88 mg/dL (74-106); High Density Lipoprotein 88 mg/dL; Magnesium 2.2 mg/dL (1.6-2.6); Potassium 4.2 mmol/L (3.5-5.1); Protein, Total 6.8 g/dL (6.4-8.2); Sodium Level 138 mmol/L (136-145); T4 Free Direct 0.99 ng/dL (0.76-1.46); Thyroid Stim Hormone (TSH) 1.98 uIU/mL (0.358-3.74); Triglycerides 38 mg/dL; Very Low Density Lipoprotein 8 mg/dL (5-40)
== END | disposition home or self-care (01) ==
LOC: MTLAB 08:00
PROVIDERS: PCP Internal Medicine; Referring Provider Internal Medicine; Visit Provider Internal Medicine
DX: E55.9 Vitamin D deficiency, unspecified (principal); I10 Essential (primary) hypertension; I25.10 Atherosclerotic heart disease of native coronary artery without angina pectoris; E78.5 Hyperlipidemia, unspecified; E04.2 Nontoxic multinodular goiter; Z79.899 Other long term (current) drug therapy; Z95.5 Presence of coronary angioplasty implant and graft
CPT/HCPCS: 36415; 80053; 80061; 82306; 83735; 84439; 84443; 84481; 85025

== ENCOUNTER → 2022-03-08 | Outpatient (CLI) | payer MEDICARE, SELFPAY ==
[2022-03-08 15:42] LABS: Anion Gap 7 (5-15); BUN 34 mg/dL (7-18); BUN/Creat Ratio 28.6 RATIO (10-20); Calcium,Total 9.7 mg/dL (8.5-10.1); Chloride 100 mmol/L (98-107); Creatinine, Serum 1.19 mg/dL (0.55-1.02); EST Glomerular Filtration Rate 46 mL/min (>60); Est Glom Filt Rate - Afr Amer 56 mL/min (>60); Glucose 86 mg/dL (74-106); Magnesium 2.2 mg/dL (1.6-2.6); Potassium 3.5 mmol/L (3.5-5.1); Sodium Level 138 mmol/L (136-145)
== END | disposition home or self-care (01) ==
LOC: MTLAB 11:14
PROVIDERS: PCP Internal Medicine; Referring Provider Internal Medicine; Visit Provider Internal Medicine
DX: I25.10 Atherosclerotic heart disease of native coronary artery without angina pectoris (principal); R60.9 Edema, unspecified; I10 Essential (primary) hypertension
CPT/HCPCS: 36415; 80048; 83735

== ENCOUNTER → 2022-04-05 | Outpatient (CLI) | payer MEDICARE, SELFPAY ==
[2022-04-05 18:09] LABS: Anion Gap 8 (5-15); BUN 27 mg/dL (7-18); BUN/Creat Ratio 24.3 RATIO (10-20); Chloride 101 mmol/L (98-107); Creatinine, Serum 1.11 mg/dL (0.55-1.02); EST Glomerular Filtration Rate 50 mL/min (>60); Est Glom Filt Rate - Afr Amer 60 mL/min (>60); Glucose 84 mg/dL (74-106); Potassium 4.1 mmol/L (3.5-5.1); Sodium Level 138 mmol/L (136-145)
== END | disposition home or self-care (01) ==
LOC: MTLAB 14:05
PROVIDERS: PCP Internal Medicine; Referring Provider Internal Medicine; Visit Provider Internal Medicine
DX: I10 Essential (primary) hypertension (principal); R79.89 Other specified abnormal findings of blood chemistry
CPT/HCPCS: 36415; 80048

== ENCOUNTER → 2022-05-19 | Outpatient (CLI) | payer MEDICARE, SELFPAY ==
[2022-05-19 09:56] LABS: Basophil# 0.04 X10^3/uL; Basophil% 0.6 % (0-1); Eosinophil# 0.09 X10^3/uL; Eosinophils% 1.3 % (0-5); Hematocrit 40.2 % (37-47); Hemoglobin 13.5 g/dL (12.0-15.0); Lymphocyte % 16.1 % (19-41); Mean Corp Hgb Conc 33.6 g/dL (32-36); Mean Corpuscular Hgb 31.4 pg (27.0-32.0); Mean Corpuscular Volume 93.5 fL (81-99); Mean Platelet Vol. 9.7 fl (6.2-12.0); Monocyte% 8.8 % (0-10); NRBC Flagged by Analyzer 0 % (0-5); Neutrophil # 4.96 X10^3/uL (2.7-7.7); Neutrophil % 72.8 % (47-70); Platelet Count 217 K/mm3 (150-450); RBC Distribution Width CV 13.6 % (11.6-14.6); RBC Distribution Width SD 46.2 fl (35.1-43.9); White Blood Count 6.8 K/mm3 (4.4-11.0)
[2022-05-19 10:08] LABS: Erythrocyte Sedimentation Rate 26 mm/hr (0-30)
[2022-05-19 10:29] LABS: ALB/GLOB Ratio 0.9 RATIO (0.9-2.4); AST(SGOT) 16 U/L (15-37); Alanine Aminotransfer ALT/SGPT 29 U/L (13-56); Albumin, Serum 3.5 g/dL (3.2-5.0); Alkaline Phosphatase 84 U/L (45-117); Anion Gap 4 (5-15); BUN 25 mg/dL (7-18); CRP < 2.90 mg/L (0.0-3.0); Calcium,Total 9.1 mg/dL (8.5-10.1); Chloride 104 mmol/L (98-107); Creatinine, Serum 1.19 mg/dL (0.55-1.02); EST Glomerular Filtration Rate 46 mL/min (>60); Est Glom Filt Rate - Afr Amer 56 mL/min (>60); Free T3 2.3 pg/mL (2.18-3.98); Globulin 3.8 g/dL (2.2-4.2); Glucose 91 mg/dL (74-106); Magnesium 2.3 mg/dL (1.6-2.6); Potassium 4.1 mmol/L (3.5-5.1); Protein, Total 7.3 g/dL (6.4-8.2); Sodium Level 139 mmol/L (136-145); T4 Free Direct 1.18 ng/dL (0.76-1.46); Thyroid Stim Hormone (TSH) 2.22 uIU/mL (0.358-3.74)
== END | disposition home or self-care (01) ==
LOC: LAB 09:17
PROVIDERS: PCP Internal Medicine; Visit Provider Internal Medicine
DX: E78.5 Hyperlipidemia, unspecified (principal); R53.1 Weakness; R25.1 Tremor, unspecified; E04.2 Nontoxic multinodular goiter; K52.839 Microscopic colitis, unspecified; Z79.899 Other long term (current) drug therapy
CPT/HCPCS: 36415; 80053; 83735; 84439; 84443; 84481; 85025; 85652; 86140

== ENCOUNTER → 2022-06-13 | Outpatient (CLI) | payer MEDICARE, SELFPAY ==
[2022-06-13 12:06] LABS: Absolute Lymphocyte Count 0.95 X10^3/uL (0.83-4.51); Absolute Neutrophil Count 4.5 X10^3/uL (2.0-7.7); Basophil# 0.03 X10^3/uL; Basophil% 0.5 % (0-1); Eosinophil# 0.09 X10^3/uL; Eosinophils% 1.4 % (0-5); Hematocrit 36.5 % (37-47); Hemoglobin 12.1 g/dL (12.0-15.0); Lymphocyte # 0.95 X10^3/ul (0.83-4.51); Lymphocyte % 15.1 % (19-41); Mean Corp Hgb Conc 33.2 g/dL (32-36); Mean Corpuscular Hgb 30.7 pg (27.0-32.0); Mean Corpuscular Volume 92.6 fL (81-99); Monocyte% 11.1 % (0-10); NRBC Flagged by Analyzer 0 % (0-5); Neutrophil % 71.4 % (47-70); Platelet Count 222 K/mm3 (150-450); RBC Distribution Width CV 13.7 % (11.6-14.6); RBC Distribution Width SD 46.7 fl (35.1-43.9); Red Blood Count 3.94 M/mm3 (4.2-5.4); White Blood Count 6.3 K/mm3 (4.4-11.0)
[2022-06-13 12:32] LABS: ALB/GLOB Ratio 0.9 RATIO (0.9-2.4); AST(SGOT) 19 U/L (15-37); Alanine Aminotransfer ALT/SGPT 32 U/L (13-56); Albumin, Serum 3.2 g/dL (3.2-5.0); Alkaline Phosphatase 71 U/L (45-117); Anion Gap 7 (5-15); BUN 25 mg/dL (7-18); BUN/Creat Ratio 20.8 RATIO (10-20); Chloride 104 mmol/L (98-107); EST Glomerular Filtration Rate 46 mL/min (>60); Est Glom Filt Rate - Afr Amer 55 mL/min (>60); Globulin 3.6 g/dL (2.2-4.2); Glucose 99 mg/dL (74-106); Potassium 4.2 mmol/L (3.5-5.1); Protein, Total 6.8 g/dL (6.4-8.2); Sodium Level 139 mmol/L (136-145)
== END | disposition home or self-care (01) ==
PROVIDERS: PCP Internal Medicine; Referring Provider Internal Medicine; Visit Provider Internal Medicine
DX: R25.1 Tremor, unspecified (principal); K52.839 Microscopic colitis, unspecified; R53.1 Weakness
CPT/HCPCS: 36415; 80053; 85025

== ENCOUNTER → 2022-08-01 | Outpatient (CLI) | payer MEDICARE, SELFPAY ==
[2022-08-01 11:26] LABS: Erythrocyte Sedimentation Rate 13 mm/hr (0-30)
[2022-08-01 11:50] LABS: ALB/GLOB Ratio 0.9 RATIO (0.9-2.4); AST(SGOT) 21 U/L (15-37); Alanine Aminotransfer ALT/SGPT 33 U/L (13-56); Albumin, Serum 3.5 g/dL (3.2-5.0); Alkaline Phosphatase 76 U/L (45-117); Anion Gap 7 (5-15); BUN 25 mg/dL (7-18); BUN/Creat Ratio 22.3 RATIO (10-20); CRP < 2.90 mg/L (0.0-3.0); Calcium,Total 9.4 mg/dL (8.5-10.1); Chloride 102 mmol/L (98-107); Creatinine, Serum 1.12 mg/dL (0.55-1.02); EST Glomerular Filtration Rate 49 mL/min (>60); Est Glom Filt Rate - Afr Amer 60 mL/min (>60); Free T3 2.2 pg/mL (2.18-3.98); Globulin 4.1 g/dL (2.2-4.2); Glucose 102 mg/dL (74-106); LDH 219 U/L (84-246); Potassium 3.8 mmol/L (3.5-5.1); Protein, Total 7.6 g/dL (6.4-8.2); Sodium Level 138 mmol/L (136-145); Thyroid Stim Hormone (TSH) 2.13 uIU/mL (0.358-3.74)
[2022-08-02 15:08] LABS: Endomysial Antibody IgA Negative (Negative)
[2022-08-02 18:08] LABS: Immunoglobulin A 313 mg/dL (64-422); t-Transglutaminase IgA <2 U/mL (0-3)
[2022-08-03 07:08] LABS: Anti-Centromere B Ab <0.2 AI (0.0-0.9); Anti-Chromatin <0.2 AI (0.0-0.9); Anti-Jo <0.2 AI (0.0-0.9); Anti-Scleroderma-70 AB <0.2 AI (0.0-0.9); RNP Ab <0.2 AI (0.0-0.9); SJOGREN'S Anti-SS-A test < 0.2 AI (0.0-0.9); SJOGREN'S Anti-SS-B test < 0.2 AI (0.0-0.9); Smith Ab <0.2 AI (0.0-0.9)
[2022-08-03 08:58] LABS: Anti-dsDNA Ab 5 IU/mL (0-9)
[2022-08-09 09:08] LABS: Albumin 3.8 g/dL (2.9-4.4); Alpha-1-Globulins 0.2 g/dL (0.0-0.4); Alpha-2-Globulins 0.8 g/dL (0.4-1.0); Cytoplasmic Ab (C-ANCA) <1:20 titer (Neg:<1:20); Immunoglobulin A 308 mg/dL (64-422); Immunoglobulin G 941 mg/dL (586-1602); Immunoglobulin M 188 mg/dL (26-217); PROEL- TOTAL PROTEIN 6.9 g/dL (6.0-8.5)
[2022-08-09 17:36] LABS: Immunoglobulin E 40 IU/mL (6-495); Perinuclear Ab (P-ANCA) <1:20 titer (Neg:<1:20)
== END | disposition home or self-care (01) ==
LOC: LAB 10:53
PROVIDERS: PCP Internal Medicine; Visit Provider Internal Medicine Gastroenterology
DX: K52.839 Microscopic colitis, unspecified (principal); E78.5 Hyperlipidemia, unspecified
CPT/HCPCS: 36415; 80053; 82784; 82785; 83516; 83615; 84165; 84443; 84481; 85652; 86140; 86225; 86235; 86255; 86256; 86334

== ENCOUNTER → 2022-08-02 | Outpatient (CLI) | payer MEDICARE, SELFPAY ==
[2022-08-05 13:03] LABS: Calprotectin, Stool 56 ug/g (0-120)
== END | disposition home or self-care (01) ==
LOC: MTLAB 09:18
PROVIDERS: PCP Internal Medicine; Referring Provider Internal Medicine Gastroenterology; Visit Provider Internal Medicine Gastroenterology
DX: K52.839 Microscopic colitis, unspecified (principal)
CPT/HCPCS: 83630; 83993

== ENCOUNTER → 2022-09-23 | Outpatient (CLI) | payer MEDICARE, SELFPAY ==
[2022-09-23 12:11] LABS: Absolute Lymphocyte Count 1.23 X10^3/uL (0.83-4.51); Basophil# 0.02 X10^3/uL; Basophil% 0.3 % (0-1); Eosinophil# 0.03 X10^3/uL; Eosinophils% 0.4 % (0-5); Hematocrit 42.3 % (37-47); Hemoglobin 13.8 g/dL (12.0-15.0); Lymphocyte # 1.23 X10^3/ul (0.83-4.51); Lymphocyte % 17.7 % (19-41); Mean Corp Hgb Conc 32.6 g/dL (32-36); Mean Corpuscular Hgb 30.4 pg (27.0-32.0); Mean Corpuscular Volume 93.2 fL (81-99); Mean Platelet Vol. 9.8 fl (6.2-12.0); Monocyte# 0.66 X10^3/uL; Monocyte% 9.5 % (0-10); NRBC Flagged by Analyzer 0 % (0-5); Neutrophil # 4.95 X10^3/uL (2.7-7.7); Neutrophil % 71.5 % (47-70); Platelet Count 228 K/mm3 (150-450); RBC Distribution Width CV 14.6 % (11.6-14.6); RBC Distribution Width SD 49.9 fl (35.1-43.9); Red Blood Count 4.54 M/mm3 (4.2-5.4); White Blood Count 6.9 K/mm3 (4.4-11.0)
[2022-09-23 12:32] LABS: ALB/GLOB Ratio 1.2 RATIO (0.9-2.4); AST(SGOT) 18 U/L (15-37); Alanine Aminotransfer ALT/SGPT 32 U/L (13-56); Albumin, Serum 3.8 g/dL (3.2-5.0); Alkaline Phosphatase 75 U/L (45-117); Anion Gap 5 (5-15); BUN 28 mg/dL (7-18); BUN/Creat Ratio 26.4 RATIO (10-20); Calcium,Total 9.5 mg/dL (8.5-10.1); Chloride 102 mmol/L (98-107); Cholesterol 214 mg/dL (200); Creatinine, Serum 1.06 mg/dL (0.55-1.02); EST Glomerular Filtration Rate 53 mL/min (>60); Est Glom Filt Rate - Afr Amer 64 mL/min (>60); Globulin 3.3 g/dL (2.2-4.2); Glucose 86 mg/dL (74-106); High Density Lipoprotein 113 mg/dL; Potassium 4.2 mmol/L (3.5-5.1); Protein, Total 7.1 g/dL (6.4-8.2); Sodium Level 138 mmol/L (136-145); Triglycerides 48 mg/dL; Very Low Density Lipoprotein 10 mg/dL (5-40)
== END | disposition home or self-care (01) ==
LOC: MTLAB 09:33
PROVIDERS: PCP Internal Medicine; Referring Provider Internal Medicine; Visit Provider Internal Medicine
DX: E78.5 Hyperlipidemia, unspecified (principal); R42 Dizziness and giddiness
CPT/HCPCS: 36415; 80053; 80061; 85025

== ENCOUNTER → 2022-11-01 | Outpatient (CLI) | payer MEDICARE, SELFPAY ==
--- NOTE | 2022-11-01 14:55 | RAD_ITS ---
INDICATION: NECK PAIN EXAMINATION/TECHNIQUE: X-RAY - XR Spine Cervical 4 or 5 Views COMPARISON: None. FINDINGS: VERTEBRAE: Preserved vertebral body height. No fracture. Grade 1 spondylolisthesis at C4-5. Preservation of the normal cervical lordosis. Multilevel facet arthropathy. DISCS: Narrowed C5-6 and C6-7 disc spaces with mild endplate spurring NECK SOFT TISSUES: No prevertebral soft tissue widening. LUNG APICES: Clear. RAD/Cerv Spine 4 or 5 Views IMPRESSION: Mild spondylosis. No evidence of acute fracture or spondylolisthesis. Electronically Signed: Darshan Shane MD at 17:09 EST ,
== END | disposition home or self-care (01) ==
LOC: MTRAD 14:53
PROVIDERS: PCP Internal Medicine; Referring Provider Nurse Practitioner Family; Visit Provider Nurse Practitioner Family
DX: M47.812 Spondylosis without myelopathy or radiculopathy, cervical region (principal)
CPT/HCPCS: 72050

== ENCOUNTER → 2022-11-08 | Outpatient (CLI) | payer MEDICARE, SELFPAY ==
--- NOTE | 2022-11-08 10:36 | STRESSREP ---
Stress Test Report Date: 11-08-2021 Procedure: Exercise tolerance test/imaging study Indications: Shortness of breath; CAD; PCI Consent: Per the patient Procedure: The patient exercised on a Flavio protocol for 4 minutes and 40 seconds completing Stage I and 1 minute and 40 seconds of Stage II achieving a peak heart rate of 142 bpm (104% predicted maximal heart rate) with resting blood pressure of 150/70 mmHg and a peak blood pressure 190/60 mmHg and a peak MET capacity of 7 METs. The baseline ECG demonstrated sinus bradycardia. The peak exercise ECG demonstrated approximately 1 mm of horizontal/upsloping ST segment depression in leads II, III, aVF, and V4 through V6 with resolution towards baseline beginning less than 1 minute in recovery. There was an occasional PVCs pretest, during exercise, and recovery and transient ventricular bigeminy during recovery. The functional capacity was considered fair. There was no complaint of chest discomfort during exercise or recovery. The examination was discontinued secondary to dyspnea. Impression: 1. Technically adequate (percent predicted maximal heart rate greater than 85%) exercise tolerance test 2. Peak exercise ECG with approximately 1 mm of horizontal/upsloping ST segment depression in leads II, III, aVF, and V4 through V6 with resolution towards baseline beginning less than 1 minute in recovery 3. There were occasional PVCs pretest, during exercise, and recovery and transient ventricular bigeminy during recovery 4. Nuclear images pending Myocardial perfusion imaging study: Technique: The patient was injected with 11.0 mCi of technetium 99m Cardiolite and subsequently rest SPECT Cardiolite nuclear imaging was obtained in the horizontal long, vertical long, and short axis views. The patient exercised on a Flavio protocol for 4 minutes and 40 seconds completing Stage I and 1 minute and 40 seconds of Stage II achieving a peak heart rate of 142 bpm (104% predicted maximal heart rate) with resting blood pressure of 150/70 mmHg and a peak blood pressure 190/60 mmHg and a peak MET capacity of 7 METs. The patient was injected with 33.3 mCi of technetium 99m Cardiolite and subsequently stress SPECT Cardiolite nuclear imaging was obtained in the horizontal long, vertical long, and short axis views. A gated Cardiolite study at peak stress was obtained. Interpretation: Rest and stress SPECT Cardiolite nuclear imaging status post realignment, normalization, and attenuation correction, demonstrates the appearance of relative uniform tracer uptake and myocardial perfusion appearing within normal limits. There is end systolic thickening and brightening. The gated Cardiolite study demonstrates myocardial thickening and inward wall motion. The reported LVEF is 72%. Impression: 1. Rest and stress SPECT Cardiolite nuclear imaging demonstrate relative uniform tracer uptake and myocardial perfusion appearing within normal limits. 2. The gated Cardiolite study reports an LVEF of 72%. This note was generated with [employer] software. It may contain incorrect words, spelling, and punctuation that were not noted in checking the note before signing.
== END | disposition home or self-care (01) ==
LOC: CVS 07:00
PROVIDERS: PCP Internal Medicine; Visit Provider Nurse Practitioner Gerontology
DX: I25.10 Atherosclerotic heart disease of native coronary artery without angina pectoris (principal)
CPT/HCPCS: 78452; 93017; A9500; A4216

== ENCOUNTER → 2023-01-25 | Outpatient (CLI) | payer MEDICARE, SELFPAY ==
--- NOTE | 2023-01-25 11:54 | BI_ITS ---
MAMMOGRAPHY - BILATERAL SCREENING 3-D TOMOSYNTHESIS REASON FOR EXAM: Female, 82 years old. Routine screening PERTINENT HISTORY: No significant family history. TECHNIQUE: 2-D mammograms and 3-D Tomosynthesis of the breast (s) were performed. CAD was performed. COMPARISON: 01/21/2022 FINDINGS: The breast composition is heterogeneously dense that can obscure small breast masses. Scattered benign calcifications are seen. No dense spiculated masses or suspicious microcalcifications are identified. No architectural distortion is identified. There is no skin thickening or retraction. There has been no significant change since the prior study. BI/SCRN MAMM (CAD)W/NAYLA BILAT IMPRESSION: No mammographic signs of malignancy. Routine yearly mammograms recommended. ASSESSMENT CATEGORY: BIRADS Category 2: Benign. A letter regarding these results will be sent to the patient by the facility within 30 days. FOLLOW UP RECOMMENDATION: Yearly follow up mammogram recommended. (A) Approximately 10% of breast cancers are not detected by mammography. A normal mammogram should not delay biopsy of a clinically suspicious abnormality. Electronically Signed: Tereso Chong MD at 13:02 EDT ,
== END | disposition home or self-care (01) ==
LOC: OPBI 11:51
PROVIDERS: PCP Internal Medicine; Referring Provider Nurse Practitioner Women's Health; Visit Provider Nurse Practitioner Women's Health
DX: Z12.31 Encounter for screening mammogram for malignant neoplasm of breast (principal)
CPT/HCPCS: 77063; 77067

== ENCOUNTER → 2023-04-03 | Outpatient (CLI) | payer MEDICARE, SELFPAY ==
[2023-04-03 11:13] LABS: AST(SGOT) 21 U/L (15-37); Alanine Aminotransfer ALT/SGPT 27 U/L (13-56); Albumin, Serum 3.3 g/dL (3.2-5.0); Alkaline Phosphatase 74 U/L (45-117); Bilirubin, Direct 0.25 mg/dL (0.00-0.30); Cholesterol 178 mg/dL (200); Globulin 3.7 g/dL (2.2-4.2); High Density Lipoprotein 107 mg/dL; Triglycerides 28 mg/dL; Very Low Density Lipoprotein 6 mg/dL (5-40)
== END | disposition home or self-care (01) ==
LOC: MTLAB 08:37
PROVIDERS: PCP Internal Medicine; Referring Provider Nurse Practitioner Gerontology; Visit Provider Nurse Practitioner Gerontology
DX: E78.5 Hyperlipidemia, unspecified (principal)
CPT/HCPCS: 36415; 80061; 80076

== ENCOUNTER → 2023-06-08 | Outpatient (CLI) | payer MEDICARE, SELFPAY ==
[2023-06-08 10:45] LABS: Absolute Lymphocyte Count 0.85 X10^3/uL (0.83-4.51); Absolute Neutrophil Count 3.6 X10^3/uL (2.0-7.7); Basophil# 0.02 X10^3/uL; Basophil% 0.4 % (0-1); Eosinophil# 0.01 X10^3/uL; Eosinophils% 0.2 % (0-5); Hematocrit 41.3 % (37-47); Lymphocyte # 0.85 X10^3/ul (0.83-4.51); Lymphocyte % 16.7 % (19-41); Mean Corp Hgb Conc 33.9 g/dL (32-36); Mean Corpuscular Hgb 31.6 pg (27.0-32.0); Mean Corpuscular Volume 93.2 fL (81-99); Mean Platelet Vol. 9.7 fl (6.2-12.0); Monocyte# 0.64 X10^3/uL; Monocyte% 12.6 % (0-10); NRBC Flagged by Analyzer 0 % (0-5); Neutrophil # 3.55 X10^3/uL (2.7-7.7); Neutrophil % 69.7 % (47-70); Platelet Count 197 K/mm3 (150-450); RBC Distribution Width CV 13.7 % (11.6-14.6); RBC Distribution Width SD 47.1 fl (35.1-43.9); Red Blood Count 4.43 M/mm3 (4.2-5.4); White Blood Count 5.1 K/mm3 (4.4-11.0)
[2023-06-08 10:51] LABS: Erythrocyte Sedimentation Rate 11 mm/hr (0-30)
[2023-06-08 11:24] LABS: ALB/GLOB Ratio 0.9 RATIO (0.9-2.4); AST(SGOT) 19 U/L (15-37); Alanine Aminotransfer ALT/SGPT 24 U/L (13-56); Albumin, Serum 3.4 g/dL (3.2-5.0); Alkaline Phosphatase 69 U/L (45-117); Amylase 113 U/L (25-115); Anion Gap 6 (5-15); BUN 28 mg/dL (7-18); BUN/Creat Ratio 24.1 RATIO (10-20); CRP < 2.90 mg/L (0.0-3.0); Calcium,Total 9.2 mg/dL (8.5-10.1); Chloride 104 mmol/L (98-107); Creatinine, Serum 1.16 mg/dL (0.55-1.02); EST Glomerular Filtration Rate 47 mL/min (>60); Est Glom Filt Rate - Afr Amer 57 mL/min (>60); Ferritin 28 ng/mL (8-252); Globulin 3.7 g/dL (2.2-4.2); Glucose 88 mg/dL (74-106); LDH 200 U/L (84-246); Lipase 73 U/L (13-75); Potassium 3.8 mmol/L (3.5-5.1); Protein, Total 7.1 g/dL (6.4-8.2); Sodium Level 137 mmol/L (136-145)
[2023-06-11 01:06] LABS: Albumin 3.5 g/dL (2.9-4.4); Alpha-1-Globulins 0.3 g/dL (0.0-0.4); Alpha-2-Globulins 0.8 g/dL (0.4-1.0); Anti-Centromere B Ab <0.2 AI (0.0-0.9); Anti-Chromatin <0.2 AI (0.0-0.9); Anti-Jo <0.2 AI (0.0-0.9); Anti-Scleroderma-70 AB <0.2 AI (0.0-0.9); Anti-dsDNA Ab 2 IU/mL (0-9); Beef <0.10 kU/L (Class 0); CMV Acute Antibody IgM < 30.0 AU/mL (0.0-29.9); Chocolate <0.10 kU/L (Class 0); Clam <0.10 kU/L (Class 0); Codfish <0.10 kU/L (Class 0); Corn <0.10 kU/L (Class 0); Cytoplasmic Ab (C-ANCA) <1:20 titer (Neg:<1:20); Egg, White <0.10 kU/L (Class 0); Egg, Whole <0.10 kU/L (Class 0); Endomysial Antibody IgA Negative (Negative); Gamma Globulin 0.9 g/dL (0.4-1.8); Immunoglobulin A 324 mg/dL (64-422); Immunoglobulin E 46 IU/mL (6-495); Immunoglobulin G 889 mg/dL (586-1602); Immunoglobulin M 177 mg/dL (26-217); Milk (Cow) <0.10 kU/L (Class 0); PROEL- TOTAL PROTEIN 6.5 g/dL (6.0-8.5); Peanut <0.10 kU/L (Class 0); Perinuclear Ab (P-ANCA) <1:20 titer (Neg:<1:20); Pork <0.10 kU/L (Class 0); RNP Ab <0.2 AI (0.0-0.9); SCALLOP <0.10 kU/L (Class 0); SESAME SEED <0.10 kU/L (Class 0); SJOGREN'S Anti-SS-A test < 0.2 AI (0.0-0.9); SJOGREN'S Anti-SS-B test < 0.2 AI (0.0-0.9); Shrimp <0.10 kU/L (Class 0); Smith Ab <0.2 AI (0.0-0.9); Soybean <0.10 kU/L (Class 0); Walnut, (Food) <0.10 kU/L (Class 0); Wheat <0.10 kU/L (Class 0); t-Transglutaminase IgA <2 U/mL (0-3)
== END | disposition home or self-care (01) ==
LOC: LAB 09:59
PROVIDERS: PCP Internal Medicine; Referring Provider Internal Medicine Gastroenterology; Visit Provider Internal Medicine Gastroenterology
DX: K52.831 Collagenous colitis (principal); R19.7 Diarrhea, unspecified
CPT/HCPCS: 36415; 80053; 82150; 82728; 82784; 82785; 83516; 83615; 83690; 84165; 85025; 85652; 86003; 86005; 86140; 86225; 86235; 86255; 86256; 86334; 86644; 86645; 87493

== ENCOUNTER → 2023-06-09 | Outpatient (CLI) | payer MEDICARE, SELFPAY ==
[2023-06-12 22:06] LABS: Pancreatic Elastase, Fecal 120 (>200)
[2023-06-15 22:06] LABS: Calprotectin, Stool 286 ug/g (0-120); Fats, Neutral Normal (.); Fats, Total Normal (.)
== END | disposition home or self-care (01) ==
LOC: MTLAB 10:35
PROVIDERS: PCP Internal Medicine; Referring Provider Internal Medicine Gastroenterology; Visit Provider Internal Medicine Gastroenterology
DX: K52.831 Collagenous colitis (principal); R19.7 Diarrhea, unspecified
CPT/HCPCS: 82653; 82705; 83630; 83993; 87177; 87209; 87329; 87506

== ENCOUNTER → 2023-08-31 | Outpatient (CLI) | payer MEDICARE, SELFPAY ==
--- NOTE | 2023-08-31 15:13 | BD_ITS ---
STUDY: DUAL ENERGY X-RAY ABSORPTIOMETRY / DXA REASON FOR EXAM: Female, 82 years old. History Osteopenia, hx hip fracture -- Compare 2020 BMD [facility] TECHNIQUE: Bone Mineral Density (BMD) measurements of lumbar spine and left hip were obtained. COMPARISON: None. FINDINGS: Lumbar Spine (L1-L4): g/cm2 (0.878) / T-score (-1.5) / Z-score (1.3) Findings are suggestive of osteopenia with a low fracture risk. Left Femur Total: g/cm2 (0.731) / T-score (-1.7) / Z-score (0.6) Left Femoral Neck: g/cm2 (0.632) / T-score (-2.0) / Z-score (0.6) BD/Dexa Bone Density Study IMPRESSION: The patient is considered osteopenic as outlined below according to World Guille Organization (WHO) criteria with a moderate fracture risk. Reference Information: The T-score is the number of standard deviations above or below the standard which is normal for young adults at their peak bone mineral density. The World Health Organization (WHO) interprets the T-scores as follows: Above -1 Normal bone density Between -1 and -2.5 Osteopenia Equal to / or below -2.5 Osteoporosis As a practical clinical guideline, osteopenia may be graded as follows: Mild -1 through -1.5 Moderate -1.6 through -2.0 Severe -2.1 through -2.4 The Z-score is the number of standard deviations above or below age-matched controls. A Z-score of less than -1.5 would be considered abnormal. References: 1. NIH Osteoporosis and Related Bone Diseases www osteo.org 2. International Society for Clinical Densitometry www iscd.org 3. National Osteoporosis Foundation www nof.org Electronically Signed: Shan Aguilar MD at 9:05 EST ,
== END | disposition home or self-care (01) ==
PROVIDERS: PCP Internal Medicine; Referring Provider Internal Medicine; Visit Provider Internal Medicine
DX: M81.0 Age-related osteoporosis without current pathological fracture (principal)
CPT/HCPCS: 77080

== ENCOUNTER → 2023-10-04 | Outpatient (CLI) | payer MEDICARE, SELFPAY ==
--- NOTE | 2023-10-04 13:42 | RAD_ITS ---
STUDY: X-RAY CHEST REASON FOR EXAM: Female, 83 years old. Respiratory infection, cough, sputum production TECHNIQUE: PA and lateral views of the chest. COMPARISON: 07/11/2017. FINDINGS: Small calcified granulomas at the right lung base largest measuring 3.7 mm. Minimal left basilar atelectasis. Remainder of the lung evans are clear. Lungs are clear and expanded. There is no demonstrated pleural abnormality. Normal size heart. Normal mediastinum and juliet. Normal visualized pulmonary arteries. There is atherosclerotic calcification of the aortic arch with tortuosity. There is demineralization of the osseous structures. There is degenerative osteoarthritis of the bilateral shoulders and spine. There is no demonstrated abnormality of the visualized soft tissue structures of the upper abdomen. RAD/Chest PA and Lateral IMPRESSION: Minimal left basilar atelectasis, otherwise no acute cardiopulmonary disease. Electronically Signed: Adry Cobb MD at 23:04 EST ,
== END | disposition home or self-care (01) ==
LOC: MTRAD 13:41
PROVIDERS: PCP Internal Medicine; Referring Provider Internal Medicine; Visit Provider Internal Medicine
DX: J22 Unspecified acute lower respiratory infection (principal)
CPT/HCPCS: 71046

== ENCOUNTER → 2023-12-05 | Outpatient (CLI) | payer MEDICARE, SELFPAY ==
--- NOTE | 2023-12-05 12:48 | CDU_ITS ---
Reason For Study: Dizziness Rt. Velocities/BP Lt. Velocities/BP Prox CCA 160.9/13.8 cm/sec. Prox CCA 137.5/13.3 cm/sec. Mid CCA 158.7/13.8 cm/sec. Mid CCA 117.4/13.3 cm/sec. Dist CCA 110.1/9.7 cm/sec. Dist CCA 124.7/15.2 cm/sec. Prox ICA 101.1/9 cm/sec. Prox ICA 106.5/9.7 cm/sec. Mid ICA 102.3/12.6 cm/sec. Mid ICA 86.4/17 cm/sec. Dist ICA 96.1/15.1 cm/sec. Dist ICA 94.2/13 cm/sec. Rt. ICA/CCA = 0.64. Lt. ICA/CCA = 0.85. Prox ECA 121.1 cm/sec. Prox ECA 132.1 cm/sec. Rt. Vert. 64.1/8 cm/sec. Lt. Vert. 54.2/8 cm/sec. Right Extracranial There is homogeneous, smooth atherosclerotic plaque noted in the right common carotid artery. There is heterogeneous, smooth atherosclerotic plaque noted in the right internal carotid artery. There is heterogeneous, irregular atherosclerotic plaque noted in the right external carotid artery. Antegrade flow is noted in the right vertebral artery. Left Extracranial There is homogeneous, smooth atherosclerotic plaque noted in the left common carotid artery. There is heterogeneous, smooth atherosclerotic plaque noted in the left internal carotid artery. There is intimal thickening but no significant atherosclerotic plaque noted in the left external carotid artery. Antegrade flow is noted in the left vertebral artery. Procedure Carotid Duplex 65103. This is a Carotid Duplex examination using B-mode, color flow and specral Doppler. Exam performed in department. VL/Carotid Duplex Ultrasound Interpretation Summary Mild (<50%) stenosis right extracranial internal carotid. Mild (<50%) stenosis left extracranial internal carotid. Patent and antegrade vertebrals bilaterally. Ordering Physician: Paulette Palmer Referring Physician: Diana Mccollum M.D. Performed By: Sharona Cash RVT
== END | disposition home or self-care (01) ==
LOC: CVS 12:48
PROVIDERS: PCP Internal Medicine; Referring Provider Nurse Practitioner Gerontology; Visit Provider Nurse Practitioner Gerontology
DX: R42 Dizziness and giddiness (principal)
CPT/HCPCS: 93880

== ENCOUNTER → 2024-02-19 | Outpatient (CLI) | payer MEDICARE, SELFPAY ==
[2024-02-19 10:31] LABS: Absolute Lymphocyte Count 0.98 X10^3/uL (0.83-4.51); Absolute Neutrophil Count 3.5 X10^3/uL (2.0-7.7); Basophil# 0.02 X10^3/uL; Basophil% 0.4 % (0-1); Eosinophil# 0.12 X10^3/uL; Eosinophils% 2.3 % (0-5); Hematocrit 38.9 % (37-47); Hemoglobin 12.6 g/dL (12.0-15.0); Lymphocyte # 0.98 X10^3/ul (0.83-4.51); Lymphocyte % 18.7 % (19-41); Mean Corp Hgb Conc 32.4 g/dL (32-36); Mean Corpuscular Hgb 30.7 pg (27.0-32.0); Mean Corpuscular Volume 94.9 fL (81-99); Monocyte# 0.55 X10^3/uL; Monocyte% 10.5 % (0-10); NRBC Flagged by Analyzer 0 % (0-5); Neutrophil # 3.54 X10^3/uL (2.7-7.7); Neutrophil % 67.3 % (47-70); Platelet Count 226 K/mm3 (150-450); RBC Distribution Width CV 13.5 % (11.6-14.6); RBC Distribution Width SD 47.6 fl (35.1-43.9); White Blood Count 5.3 K/mm3 (4.4-11.0)
--- NOTE | 2024-02-19 10:40 | BI_ITS ---
MAMMOGRAPHY - BILATERAL SCREENING REASON FOR EXAM: Female, 83 years old. Routine annual screening examination. PERTINENT HISTORY: Non-contributory. TECHNIQUE: Digital bilateral breast nayla (3D mammographic acquisition) in the CC and MLO projections. 2-D mediolateral oblique (MLO) and craniocaudad (CC) views of both breasts were obtained. CAD: Full Field Digital Mammography with Computer Added Detection was performed. COMPARISON: Comparison is made with prior study January 25, 2023 and January 21, 2022. FINDINGS: Breast Composition: The breasts are extremely dense, which lowers the sensitivity of mammography. There are no dominant masses or suspicious calcifications. Stable bilateral secretory calcifications. No other significant abnormalities are identified. There has been no significant change since the prior study. BI/SCRN MAMM (CAD)W/NAYLA BILAT IMPRESSION: Stable bilateral screening mammogram. Yearly follow-up mammogram recommended. (A) ASSESSMENT CATEGORY: BIRADS Category 2: Benign. A letter regarding these results will be sent to the patient by the facility within 30 days. Approximately 10% of breast cancers are not detected by mammography. A normal mammogram should not delay biopsy of a clinically suspicious abnormality. [id number] Electronically Signed: Shan Aguilar MD at 11:31 EDT ,
[2024-02-19 11:02] LABS: Vitamin B12 581 pg/mL (211-911); Vitamin D,25 Hydroxy 107.7 ng/mL
[2024-02-19 11:26] LABS: Cholesterol 182 mg/dL (200); High Density Lipoprotein 98 mg/dL; Triglycerides 41 mg/dL; Very Low Density Lipoprotein 8 mg/dL (5-40)
[2024-02-19 11:27] LABS: ALB/GLOB Ratio 0.9 RATIO (0.9-2.4); AST(SGOT) 21 U/L (15-37); Alanine Aminotransfer ALT/SGPT 25 U/L (13-56); Albumin, Serum 3.1 g/dL (3.2-5.0); Alkaline Phosphatase 74 U/L (45-117); Anion Gap 6 (5-15); BUN 21 mg/dL (7-18); Calcium,Total 9.3 mg/dL (8.5-10.1); Chloride 106 mmol/L (98-107); EST Glomerular Filtration Rate 56 mL/min (>60); Est Glom Filt Rate - Afr Amer 68 mL/min (>60); Globulin 3.6 g/dL (2.2-4.2); Glucose 86 mg/dL (74-106); Magnesium 1.9 mg/dL (1.6-2.6); Potassium 3.7 mmol/L (3.5-5.1); Protein, Total 6.7 g/dL (6.4-8.2); Sodium Level 139 mmol/L (136-145); Thyroid Stim Hormone (TSH) 3.03 uIU/mL (0.358-3.74)
== END | disposition home or self-care (01) ==
LOC: OPBI 08:20
PROVIDERS: Nurse Practitioner Gerontology; PCP Internal Medicine; Referring Provider Internal Medicine; Visit Provider Internal Medicine
DX: Z12.31 Encounter for screening mammogram for malignant neoplasm of breast (principal); E55.9 Vitamin D deficiency, unspecified; I25.10 Atherosclerotic heart disease of native coronary artery without angina pectoris; I10 Essential (primary) hypertension; E78.5 Hyperlipidemia, unspecified; E04.2 Nontoxic multinodular goiter; R42 Dizziness and giddiness; K52.839 Microscopic colitis, unspecified
CPT/HCPCS: 36415; 77063; 77067; 80053; 80061; 82306; 82607; 83735; 84443; 85025

== ENCOUNTER → 2024-03-22 | Outpatient (CLI) | payer MEDICARE, SELFPAY ==
--- NOTE | 2024-03-22 13:44 | CT_ITS ---
STUDY: CT BRAIN WITH AND WITHOUT CONTRAST REASON FOR EXAM: Female, 83 years old. Dizziness, post OWENS, gait disturbance RADIATION DOSAGE (If Supplied By Facility): CTDIvol = ( 44.99 ) mGy, DLP = ( 1547.23 ) mGycm TECHNIQUE: Transaxial CT imaging of the brain was performed pre and post contrast administration. The examination was performed with intravenous administration of 50ML ISOVUE 300. Individualized dose optimization techniques were used for this CT. COMPARISON: Comparison is made with prior study did generate ,020. FINDINGS: Normal soft tissue structures. Normal calvarium. There is mild cerebral atrophy with widening of the extra-axial spaces and ventricular dilatation. Since prior study, there is evidence of a 2.2 cm x 1.3 cm enhancing nodular density in the posterior left temporal parietal lobe. There is also evidence of a heterogeneous enhancement in the hypodense lesion in the posterior aspect of the left parietal and occipital lobes with focal enhancement. This abuts the cortical surface. A metastatic deposit should BE ruled out. Correlation with MRI recommended. Normal basal ganglia and thalami. Normal brainstem. Normal cerebellum. There is no intracranial hemorrhage. There are no findings of an acute ischemic infarction. Normal visualized paranasal sinuses. CT/Brain/Head W/WO Contrast IMPRESSION: Findings in the left posterior temporal parietal and parietal occipital lobes as described. Correlation with MRI of the brain is recommended. Recommended. Electronically Signed: Shan Aguilar MD at 14:42 EDT ,
== END | disposition home or self-care (01) ==
LOC: CT 13:44
PROVIDERS: PCP Internal Medicine; Referring Provider Internal Medicine; Visit Provider Internal Medicine
DX: R42 Dizziness and giddiness (principal); M54.2 Cervicalgia; R26.9 Unspecified abnormalities of gait and mobility
CPT/HCPCS: 70470; Q9967

== ENCOUNTER → 2024-04-08 | Outpatient (CLI) | payer MEDICARE, SELFPAY ==
--- NOTE | 2024-04-08 12:41 | MRI_ITS ---
EXAM: MR HEAD WITHOUT AND WITH INTRAVENOUS CONTRAST CLINICAL INDICATION: dizziness, gait disturbance, POSITIVE FINDING ON PREVIOUS CT TECHNIQUE: Multiplanar and multisequence MR images of the brain were obtained without and with intravenous contrast. CONTRAST: 14 mL of IV Clariscan. COMPARISON: CT head with and without contrast 04/04/2024. CTA head without contrast 11/04/2019. FINDINGS: BRAIN AND EXTRA-AXIAL SPACES: Curvilinear diffusion restriction involving the posterior aspect of the left superior temporal gyrus, the left angular gyrus and the left lateral occipitotemporal gyrus. There is curvilinear enhancement of this cortical gyral ischemic infarct due to breakdown of blood-brain barrier. There is no brain metastases or metastatic mass or enhancing mass. Posterior fossa structures are unremarkable. Ventricles are appropriate for age. No hydrocephalus. Basal cisterns are patent. SELLA: Unremarkable. Normal sella turcica, pituitary gland, infundibular stalk, optic chiasm and hypothalamus. AUDITORY SYSTEM: Unremarkable. The internal auditory canals are patent. BONES/JOINTS: Unremarkable. No discrete lytic or blastic abnormalities. SINUSES: Unremarkable as visualized. Clear. MASTOID AIR CELLS: Unremarkable as visualized. Clear. ORBITS: Unremarkable as visualized. Both globes, extraocular muscles, optic nerves and retrobulbar fat appear unremarkable. VASCULATURE: Unremarkable as visualized. Normal flow voids in the major intracranial circulation. MRI/Brain W/WO Contrast IMPRESSION: 1. Enhancing subacute cortical gyral ischemic infarct in the posterior aspect of the left superior temporal gyrus, left angular gyrus and left lateral occipitotemporal gyrus. 2. No MRI evidence of any enhancing mass or intracranial mass. Electronically Signed: Kasi Adam MD at 14:37 EDT ,
== END | disposition home or self-care (01) ==
PROVIDERS: PCP Internal Medicine; Referring Provider Internal Medicine; Visit Provider Internal Medicine
DX: Z01.812 Encounter for preprocedural laboratory examination (principal); R26.9 Unspecified abnormalities of gait and mobility; R42 Dizziness and giddiness
CPT/HCPCS: 70553; A9575

== ENCOUNTER → 2024-05-06 | Outpatient (CLI) | payer MEDICARE, SELFPAY ==
--- NOTE | 2024-05-06 13:19 | CT_ITS ---
STUDY: CTA HEAD AND NECK WITH CONTRAST REASON FOR EXAM: Female, 83 years old. Posterior CVA RADIATION DOSAGE (If Supplied By Facility): CTDIvol = ( 24.73 ) mGy, DLP = ( 1469.84 ) mGycm TECHNIQUE: CT angiography was performed with a multi-detector CT scanner. Data acquisition was obtained from the skull base through the vertex following intravenous administration of IV 100mL Isovue-370. MIP images were reconstructed from the axial data set. Post-processing of the angiographic images was performed, with multiplanar reformation and 3D reconstruction. Individualized dose optimization techniques were used for this CT. COMPARISON: Comparison is made with prior CT scan of the brain dated March 22, 2024. FINDINGS: Normal bilateral petrous carotid arteries. There is calcified plaque formation of the right cavernous carotid artery, without a cross-sectional luminal stenosis. There is calcified plaque formation of the left cavernous carotid artery, without a cross-sectional luminal stenosis. Normal right A1 segments of the anterior cerebral artery. Normal left A1 segments of the anterior cerebral artery. Normal intact anterior communicating artery (ACOM). Normal bilateral A2 segments of the anterior cerebral arteries. Normal right M1 and M2 segments of the middle cerebral arteries, with a normal M1 bifurcation. Normal left M1 and M2 segments of the middle cerebral arteries, with a normal M1 bifurcation. Normal right posterior communicating artery (PCOM). Normal left posterior communicating artery (PCOM). Normal bilateral vertebral arteries. Normal basilar artery with a normal basilar bifurcation. The visualized bilateral superior cerebellar (SCA) arteries are normal. Normal bilateral P1, P2 and visualized P3 segments of the posterior cerebral arteries. There is no demonstrated aneurysm of the [place]. Stable appearance of the focal area of encephalomalacia in the posterior left temporal parietal occipital lobes. AORTIC ARCH: There is atherosclerotic calcific plaque formation of the aortic arch and great vessels arising from the aortic arch, without a hemodynamically significant stenosis. There is a bovine origin of the great vessels with a common origin of the brachiocephalic and left common carotid artery. Normal origin of the left subclavian artery. RIGHT CAROTID ARTERIES: Normal right common carotid artery (CCA). Normal right common carotid bulb. There is mild atherosclerotic plaque formation of the origin of the right internal carotid artery with less than 50% cross sectional diameter stenosis. Normal visualized cervical portion of the right internal carotid artery. Normal origin of the right external carotid artery (ECA). LEFT CAROTID ARTERIES: Normal left common carotid artery (CCA). Normal left common carotid bulb. There is mild atherosclerotic plaque formation of the origin of the left internal carotid artery with less than 50% cross sectional diameter stenosis. Normal visualized cervical portion of the left internal carotid artery. Normal origin of the left external carotid artery (ECA). VERTEBRAL ARTERIES: Normal bilateral vertebral arteries. CT/CTA Head AND Neck W/ Contrast IMPRESSION: Mild plaque formation at the origin of the right and left internal carotid arteries causing left than 50% narrowing. Electronically Signed: Shan Aguilar MD at 14:15 EDT ,
== END | disposition home or self-care (01) ==
LOC: CT 13:18
PROVIDERS: PCP Internal Medicine; Referring Provider Internal Medicine; Visit Provider Internal Medicine
DX: I63.9 Cerebral infarction, unspecified (principal); R26.9 Unspecified abnormalities of gait and mobility; M54.2 Cervicalgia
CPT/HCPCS: 70496; 70498; Q9967

== ENCOUNTER 2024-05-13 14:30 | Outpatient (RCR) | payer MEDICARE, SELFPAY ==
--- NOTE | 2024-04-19 14:36 | HP.PTEVAL_ITS ---
Patient's Visit Information Visit Information Visit Information: HUY STOKES is a 83 year old F referred to Physical Therapy by Dr. Diana Mccollum MD with a diagnosis of Vestibular, stroke, dizziness. Date of Evaluation: 04/19/24 Physical Therapist: MARK Bernal Visit Plan Frequency: 2x /Week Duration: 2 Months Plan: Call Dr about treatment for her neck Next visit work on neck tissue to see if can help with neck stiffness and teach HEP for stretching, work on gait and balance and VOR HEP: seated rotation of the c-spine and seated flex/ext of the neck for ROM Subjective Subjective: Pt had a stroke 6 weeks ago but only found out about it a week ago. March 06 she felt a little light headed but just went home. The next day she felt more and more light headed and she went to the Dr and then went to a Dr and then did a CATSCAN and got the results a week later meanwhile she is going to chiro 3X/ week. CATSCAN showed lesions on brain and they said that they wanted an MRI and the results of that showed that she had a stroke. The dizziness is still there and the lightheadedness is bad and the stiff neck is still there and she notices a little brain fog. She is hesitant to do somethings. She can not see very well and dry eyes are nto helping. She is having blurry vision. This has not affected her speech and she is not quit right in her thinking. She is hesitant to move her head due to increase in dizziness. The stroke was in the part of the brain that controls her balance. She has not weakness in her arms and legs. She has not been taking walks because not very steady. She is back to driving. She has stairs to the basement and she is able to do them but hangs onto the railing. No falls. She is dizzy sitting here right now 5-/6/10 with moving her neck but if do not move it is not quite as bad about 2/10. The stiff neck is still there. She has no head, ear or eye pressure Pain Stiff neck: Pain Intensity (Out of 10): 5 Objective Objective: Gait: pt walks with straight cane with wider SHAYY, no head turn, shorter strides, slower cadance and some veering with gait. Had the pt walk with turning her head and she had increase veering and increase dizziness. She complains of neck stiffness and dizziness everytime she moves her neck. Had the pt walk with a rollator and she was able to move with much smoother gait pattern. With the rollator, I had her turn her neck horizontally with walking and she did get dizzy. C-spine AROM: flex 100%, Ext 50%, SB B 5%, ROT 50% B. Had the pt move her head R and L X 10 and she had increase dizziness as well as when she did that vert ically. Smooth pursuit horizontally... no dizziness. Smooth pursuit vertically she had some catching up to do at times and it did make her dizzy UE AROM WFL B UE MMT: 4/5 B LE MMT: B hip flex 4-/5, B knee ext 4-/5, B knee flex 4-/5 Pt is able to heel and toe raise FGA: 9 palpation: tender along the occiput and along the upper c-spine paraspinals....made her dizzy and sick to her stomach. she sat up and felt much better. Balance/Special Test Scores Functional Gait Assessment Score: 9 % Disability: 70.0000 Dizziness Score: 38 Goals Goal 1:: I HEP Goal Time Frame: 6-8 Weeks Goal 2:: Increase neck ROM without pain or dizziness (at the time of the eval: C-spine AROM: flex 100%, Ext 50%, SB B 5%, ROT 50% B). Goal Time Frame: 6-8 Weeks Goal 3:: Increase balance (score on FGA was 9 at eval). Goal Time Frame: 6-8 Weeks Goal 4:: Decrease overall dizziness by 50% with walking and turning her head Goal Time Frame: 6-8 Weeks Rehabilitation Potential Rehabilitation Potential: Good Anticipated Interventions Patient/Client Instruction: Educate patient on: Condition and Plan of Care For the Purpose of:: To decrease pain, To increase ROM, To improve nutrient delivery to tissue, To improve muscle performance and motor function, To improve ability to perform ADL's, To increase tolerance to activity/condition/position, To improve performance and independence with ADL's, To decrease level of supervision to perform tasks, To improve gait and locomotor functions, To improve health of tissue, To decrease soft tissue restriction, To increase flexi bility/ROM, To improve balance and To improve safety with gait Therapeutic Exercise to Include: Strength training, Balance training, Postural training, Flexibilty training, Gait and locomotor training, Neuromotor development, Active ROM and Scapular Strength/Stabilization For the Purpose of:: To decrease pain, To improve nutrient delivery to tissue, To improve muscle performance and motor function, To improve ability to perform ADL's, To increase tolerance to activity/condition/position, To improve performance and independence with ADL's, To decrease level of supervision to perform tasks, To improve gait and locomotor functions, To improve health of tissue, To decrease soft tissue restriction, To increase flexibility/ROM, To improve endurance, To improve balance and To improve safety with gait Functional Training to Include: Gait training For the Purpose of:: To improve gait and locomotor functions and To improve safety with gait Manual Therapy Techniques to Include: Passive ROM and Soft tissue mobilization For the Purpose of:: To decrease pain, To increase ROM, To improve nutrient delivery to tissue and To improve ability to perform ADL's Cryotherapy (ice pack, ice massage): Yes Thermo therapy (hot pack): Yes For the Purpose of:: To decrease pain, To increase ROM and To improve nutrient delivery to tissue Text: Thank you for the opportunity to evaluate your patient. For Medicare and Medicare HMO plans, please review the plan of care and approve it. It will need to be FAXED BACK to us at [phone] for Medicare purposes. For Medicare only, by signing this I certify the plan of care. Please let me know if there are questions or concerns regarding this plan of care. Physician Signature : Date:
--- NOTE | 2024-07-16 08:07 | HP.PTDCNRP_ITS ---
Patient Information Patient Information: HUY STOKES was seen in my office for initial evaluation on 04/19/24. The following Plan of Care was established for this patient: POC Established Initial Frequency: 2x /Week Initial Duration: 2 Months Anticipated Interventions Patient/Client Instruction: Educate patient on: Condition and Plan of Care For the Purpose of:: To decrease pain, To increase ROM, To improve nutrient delivery to tissue, To improve muscle performance and motor function, To improve ability to perform ADL's, To increase tolerance to activity/condition/position, To improve performance and independence with ADL's, To decrease level of supervision to perform tasks, To improve gait and locomotor functions, To improve health of tissue, To decrease soft tissue restriction, To increase flexibility/ROM, To improve balance and To improve safety with gait Therapeutic Exercise to Include: Strength training, Balance training, Postural training, Flexibilty training, Gait and locomotor training, Neuromotor development, Active ROM and Scapular Strength/Stabilization For the Purpose of:: To decrease pain, To improve nutrient delivery to tissue, To improve muscle performance and motor function, To improve ability to perform ADL's, To increase tolerance to activity/condition/position, To improve performa nce and independence with ADL's, To decrease level of supervision to perform tasks, To improve gait and locomotor functions, To improve health of tissue, To decrease soft tissue restriction, To increase flexibility/ROM, To improve endurance, To improve balance and To improve safety with gait Functional Training to Include: Gait training For the Purpose of:: To improve gait and locomotor functions and To improve safety with gait Manual Therapy Techniques to Include: Passive ROM and Soft tissue mobilization For the Purpose of:: To decrease pain, To increase ROM, To improve nutrient delivery to tissue and To improve ability to perform ADL's Cryotherapy (ice pack, ice massage): Yes Thermo therapy (hot pack): Yes For the Purpose of:: To decrease pain, To increase ROM and To improve nutrient delivery to tissue Last Seen Last Seen: This patient was last seen in our office 05/13/24. Pertinent comments regarding their Physical therapy will appear below: [facility] PT At this point I will be discontinuing this patient from physical therapy. I would be happy to see this patient again in the future if found appropriate by the physician. Thank you! Nenita Sarah, MPT Balance/Gait/Functional tests Balance/Special Test Scores Functional Gait Assessment Score: 9 % Disability: 70.0000 Dizziness Score: 38
== END 2024-05-13 19:00 | disposition home or self-care (01) ==
LOC: PT 14:30
PROVIDERS: PCP Internal Medicine; Referring Provider Internal Medicine; Visit Provider Internal Medicine
DX: Z86.73 Personal history of transient ischemic attack (TIA), and cerebral infarction without residual deficits (principal); R26.9 Unspecified abnormalities of gait and mobility; R42 Dizziness and giddiness
CPT/HCPCS: 97110; 97162

== ENCOUNTER → 2024-05-14 | Outpatient (CLI) | payer MEDICARE, SELFPAY ==
--- NOTE | 2024-05-14 09:58 | ECHOD_ITS ---
Reason For Study: ASHD/CAD, TIA/CVA Procedure This was a 2D Doppler, Color Flow transthoracic echocardiogram. Exam performed in department. Left Ventricle Normal LV size. The estimated ejection fraction is 65 %. Unable to assess diastolic dysfunction. No regional wall motion abnormalities noted. Right Ventricle Normal RV size. Normal systolic function. Atria The left atrium is moderately enlarged. Normal right atrium. No doppler evidence for ASD. Bubble contrast study negative for right to left interatrial shunt. Mitral Valve There is moderate to severe mitral annular calcification. There is no mitral valve stenosis. Trivial mitral valve insufficiency. Tricuspid Valve There is no tricuspid stenosis. Trivial tricuspid valve insufficiency. Unable to estimate RV systolic pressure due to insufficient tricuspid regurgitant envelope. Aortic Valve Trisinus/trileaflet aortic valve. There is no aortic stenosis. No aortic valve insufficiency. Pulmonic Valve There is no pulmonic valvular stenosis. No pulmonic valve insufficiency. Great Vessels Normal aortic root. Pericardium/Pleural No pericardial effusion. Medication 22 gauge I.V. with prn adaptor inserted into right arm. Performed a rapid injection of agitated mix of 9 cc saline and 1cc air to assess for atrial septal defect. MMode/2D Measurements & Calculations LVIDd: 4.3 cm IVSd: 1.2 cm Ao root diam: 2.7 cm LVIDs: 2.2 cm LVPWd: 1.2 cm LA dimension: 4.2 cm RVDd: 4.6 cm FS: 48.6 % LAV(MOD-bp): 88.0 ml LVAd ap4: 26.0 cm2 SV(MOD-sp4): 53.3 ml LAV(MOD-bp) Indexed: 49.1 ml/m2 LVLd ap4: 6.7 cm LAV(MOD-sp2): 84.7 ml EDV(MOD-sp4): 81.0 ml LAV(MOD-sp4): 80.8 ml EDV(sp4-el): 86.0 ml LVAs ap4: 13.8 cm2 LVLs ap4: 6.0 cm ESV(MOD-sp4): 27.6 ml ESV(sp4-el): 26.9 ml EF(MOD-sp4): 65.9 % EF(sp4-el): 68.7 % SV(sp4-el): 59.1 ml LA A4 area: 26.5 cm2 RA A4 area: 16.8 cm2 TAPSE: 2.4 cm Time Measurements MV dec time: 0.23 sec Doppler Measurements & Calculations MV E max rosalio: 102.3 cm/sec Lat Peak E' Rosalio: 6.4 cm/sec Med Peak E' Rosalio: 7.0 cm/sec MV A max rosalio: 112.1 cm/sec E/E' lat: 16.0 E/E' med: 14.6 MV E/A: 0.91 MV V2 max: 135.7 cm/sec MV P1/2t max rosalio: 119.4 cm/sec Ao V2 max: 160.1 cm/sec MV max P.4 mmHg MV P1/2t: 76.6 msec Ao max P.3 mmHg MV V2 mean: 59.7 cm/sec Ao V2 mean: 109.8 cm/sec MV mean P.9 mmHg MV dec slope: 456.2 cm/sec2 Ao mean P.5 mmHg MV V2 VTI: 51.2 cm MVA(P1/2t): 2.9 cm2 Ao V2 VTI: 44.3 cm AV (velocity ratio): 0.70 LV V1 max: 106.3 cm/sec PA V2 max: 110.4 cm/sec TR max rosalio: 228.9 cm/sec LV V1 max P.5 mmHg PA max PG (full): 1.9 mmHg TR max P.0 mmHg LV V1 mean P.8 mmHg PA V2 mean: 77.5 cm/sec LV V1 mean: 77.9 cm/sec PA mean PG (full): 0.98 mmHg LV V1 VTI: 31.1 cm ECHO/Echo Complete Interpretation Summary The estimated ejection fraction is 65 %. Unable to assess diastolic dysfunction. The left atrium is moderately enlarged. Trivial mitral valve insufficiency. Ordering Physician: Diana Mccollum Referring Physician: Diana Mccollum Performed By: Mark Boles RCS
== END | disposition home or self-care (01) ==
LOC: CVS 09:58
PROVIDERS: PCP Internal Medicine; Referring Provider Internal Medicine; Visit Provider Internal Medicine
DX: I25.10 Atherosclerotic heart disease of native coronary artery without angina pectoris (principal); I63.9 Cerebral infarction, unspecified
CPT/HCPCS: 93306; A4216

== ENCOUNTER → 2024-06-19 | Outpatient (CLI) | payer MEDICARE, SELFPAY ==
[2024-06-19 14:22] LABS: Absolute Lymphocyte Count 1.04 X10^3/uL (0.83-4.51); Absolute Neutrophil Count 5.6 X10^3/uL (2.0-7.7); Basophil# 0.03 X10^3/uL; Basophil% 0.4 % (0-1); Eosinophil# 0.05 X10^3/uL; Eosinophils% 0.6 % (0-5); Hematocrit 39.6 % (37-47); Hemoglobin 13.1 g/dL (12.0-15.0); Lymphocyte # 1.04 X10^3/ul (0.83-4.51); Lymphocyte % 13.4 % (19-41); Mean Corp Hgb Conc 33.1 g/dL (32-36); Mean Corpuscular Volume 93.6 fL (81-99); Mean Platelet Vol. 9.7 fl (6.2-12.0); Monocyte# 0.96 X10^3/uL; Monocyte% 12.4 % (0-10); NRBC Flagged by Analyzer 0 % (0-5); Neutrophil # 5.63 X10^3/uL (2.7-7.7); Neutrophil % 72.6 % (47-70); Platelet Count 229 K/mm3 (150-450); RBC Distribution Width CV 13.5 % (11.6-14.6); RBC Distribution Width SD 46.5 fl (35.1-43.9); Red Blood Count 4.23 M/mm3 (4.2-5.4); White Blood Count 7.8 K/mm3 (4.4-11.0)
[2024-06-19 14:31] LABS: Erythrocyte Sedimentation Rate 7 mm/hr (0-30)
[2024-06-19 16:39] LABS: CRP < 2.90 mg/L (0.0-3.0); Iron 97 ug/dL (50-170); Iron Binding Capacity,Total 332 ug/dL (250-450)
== END | disposition home or self-care (01) ==
LOC: LAB 13:39
PROVIDERS: PCP Internal Medicine; Referring Provider Student in an Organized Health Care Education/Training Program; Visit Provider Student in an Organized Health Care Education/Training Program
DX: R19.7 Diarrhea, unspecified (principal); R53.1 Weakness; D64.9 Anemia, unspecified
CPT/HCPCS: 36415; 83540; 83550; 84439; 84443; 85025; 85652; 86140

== ENCOUNTER → 2024-06-20 | Outpatient (CLI) | payer MEDICARE, SELFPAY ==
[2024-06-24 17:07] LABS: Pancreatic Elastase, Fecal 290 (>200)
[2024-06-24 22:07] LABS: Calprotectin, Stool 329 ug/g (0-120)
== END | disposition home or self-care (01) ==
PROVIDERS: PCP Internal Medicine; Referring Provider Student in an Organized Health Care Education/Training Program; Visit Provider Student in an Organized Health Care Education/Training Program
DX: R53.1 Weakness (principal); K58.9 Irritable bowel syndrome, unspecified
CPT/HCPCS: 82653; 83630; 83993; 87177; 87209

== ENCOUNTER 2024-08-28 13:00 | Outpatient (RCR) | payer MEDICARE, SELFPAY ==
--- NOTE | 2024-08-19 11:31 | HP.PTEVAL_ITS ---
Patient's Visit Information Visit Information Visit Information: HUY STOKES is a 83 year old F referred to Physical Therapy by Dr. Diana Mccollum MD with a diagnosis of CEREBRAL INFARCT ,WEAKNESS ,ABNORMALITY OF GAIT. Date of Evaluation: 08/19/24 Physical Therapist: Robert Juares, PT, Cert MDT, OCS Visit Plan Frequency: 2x /Week Duration: 4 Weeks Plan: PT INTERVENTIONS PROGRESSIVE BALANCE TRAINING ,FUNCTIONAL STRENGTHENING ,BLE STRENGTHENING AND AEROBIC EX'S Subjective Subjective: This 83 y/o female presents to physical therapy with CVA and weakness. Patient had CVA Mar 06 2024 . Patient had MRI showed infarct. Then had 2 session of PT . This was due due to colitis. Most recently seen DR recommended seen for routine visits. Patient has had no falls. C/O paresthesia in feet and pain in feet. Patient denies nausea but has constant slight dizziness. Patient has had chiropractor tx. Lives alone 1 story home with 2 steps with rail. P atient cooking and bathing/dressing I with ADL's. Patient sleeping good. Patient c/o stiffness in knee . Patient condition affects QOL. Patient goals to improve balance stiffness in neck and knees . SOCIAL Pain Bilateral Knee: Pain Intensity (Out of 10): 8 Pain Intensity Range: 10 Bilateral Foot: Pain Intensity (Out of 10): 8 Pain Intensity Range: 10 Objective Objective: POSTURE: mild forward posture GAIT: reciprocal pattern narrow SHAYY ,decrease step length slow thang NEURO: c/o paresthesia/tingling on feet ( neuropathy) STAIRS: one step at time FLEXABILITY: hamstrings min tight MMT: quads/hams 4/5 ( peak force) hip flexion 21.1 right ,left 22.3 ,hip abduction right 12.8 ,left 14.1 Balance/Special Test Scores Functional Gait Assessment Score: 17 % Disability: 43.3400 CATSIB Score (Max score 120 seconds): 42 Lower Extremity Functional Score: 35 Goals Goal 1:: Patient to be I with HEP Goal Time Frame: 4-6 Weeks Goal 2:: Patient to demonstrate 50% improvement with function and ADLS Goal Time Frame: 4-6 Weeks Goal 3:: Patient to improve CATSIB by 5 points to improve balance Goal Time Frame: 4-6 Weeks Goal 4:: Patient to improve functional gait assessment score by 5 points to improve QOL Goal Time Frame: 4-6 Weeks Goal 5:: Patient to improve LFES score by 5 points to improve gait and Balnce Goal Time Frame: 4-6 Weeks Goal 6:: Patient to improve hip strength peak force by 5 # to improve function Rehabilitation Potential Physical Therapy Diagnosis: This patient has has generalized balance deficits and weakness in legs ( hips) and stiffness in knees impairs ADLS and housework tasks thus benefit from skilled PT Rehabilitation Potential: Good Anticipated Interventions Patient/Client Instruction: Educate patient on: Condition and Plan of Care For the Purpose of:: To decrease pain, To improve muscle performance and motor function, To improve ability to perform ADL's, To increase tolerance to activity/condition/position, To improve ability of physical actions for home/community/work/leisure, To improve gait and locomotor functions, To improve health of tissue, To decrease soft tissue restriction, To increase flexibility/ROM, To improve endurance and To improve balance Therapeutic Exercise to Include: Strength training, Endurance training, Balance training, Postural training and Flexibilty training Comment: HIPS For the Purpose of:: To decrease pain, To improve muscle performance and motor function, To improve ability to perform ADL's, To increase tolerance to activity/condition/position, To improve ability of physical actions for home/community/work/leisure, To improve health of tissue, To increase flexibility/ROM, To improve endurance and To improve balance Text: Thank you for the opportunity to evaluate your patient. For Medicare and Medicare HMO plans, please review the plan of care and approve it. It will need to be FAXED BACK to us at [phone] for Medicare purposes. For Medicare only, by signing this I certify the plan of care. Please let me know if there are questions or concerns regarding this plan of care. Physician Signature: Date:
--- NOTE | 2024-10-15 16:07 | HP.PTDCNRP_ITS ---
Patient Information Patient Information: HUY STOKES was seen in my office for initial evaluation on 08/19/24. The following Plan of Care was established for this patient: POC Established Initial Frequency: 2x /Week Initial Duration: 4 Weeks Anticipated Interventions Patient/Client Instruction: Educate patient on: Condition and Plan of Care For the Purpose of:: To decrease pain, To improve muscle performance and motor function, To improve ability to perform ADL's, To increase tolerance to activity/condition/position, To improve ability of physical actions for ho me/community/work/leisure, To improve gait and locomotor functions, To improve health of tissue, To decrease soft tissue restriction, To increase flexibility/ROM, To improve endurance and To improve balance Therapeutic Exercise to Include: Strength training, Endurance training, Balance training, Postural training and Flexibilty training For the Purpose of:: To decrease pain, To improve muscle performance and motor function, To improve ability to perform ADL's, To increase tolerance to activity/condition/position, To improve ability of physical actions for home/community/work/leisure, To improve health of tissue, To increase flexibility/ROM, To improve endurance and To improve balance Last Seen Last Seen: This patient was last seen in our office . Pertinent comments regarding their Physical therapy will appear below: Patient was seen for PT for weakness and decrease gait for balance and strengthening thus d/c to HEP At this point I will be discontinuing this patient from physical therapy. I would be happy to see this patient again in the future if found appropriate by the physician. Thank you! Robert Juares, PT, Cert MDT, OCS Balance/Gait/Functional tests Balance/Special Test Scores Functional Gait Assessment Score: 17 % Disability: 43.3400 CATSIB Score (Max score 120 seconds): 42 Lower Extremity Functional Score: 35
== END 2024-08-28 19:00 | disposition home or self-care (01) ==
LOC: PT 13:00
PROVIDERS: PCP Internal Medicine; Referring Provider Internal Medicine; Visit Provider Internal Medicine
DX: R26.9 Unspecified abnormalities of gait and mobility (principal); R42 Dizziness and giddiness; R53.1 Weakness; Z86.73 Personal history of transient ischemic attack (TIA), and cerebral infarction without residual deficits
CPT/HCPCS: 97110; 97162

== ENCOUNTER → 2025-02-06 | Outpatient (CLI) | payer MEDICARE, SELFPAY ==
[2025-02-06 12:55] LABS: Absolute Lymphocyte Count 1.31 X10^3/uL (0.83-4.51); Absolute Neutrophil Count 4.5 X10^3/uL (2.0-7.7); Basophil# 0.02 X10^3/uL; Basophil% 0.3 % (0-1); Eosinophil# 0.04 X10^3/uL; Eosinophils% 0.6 % (0-5); Hematocrit 38.7 % (37-47); Hemoglobin 12.9 g/dL (12.0-15.0); Lymphocyte # 1.31 X10^3/ul (0.83-4.51); Lymphocyte % 20.3 % (19-41); Mean Corp Hgb Conc 33.3 g/dL (32-36); Mean Corpuscular Hgb 31.8 pg (27.0-32.0); Mean Corpuscular Volume 95.3 fL (81-99); Mean Platelet Vol. 10.1 fl (6.2-12.0); Monocyte# 0.59 X10^3/uL; Monocyte% 9.1 % (0-10); NRBC Flagged by Analyzer 0 % (0-5); Neutrophil # 4.46 X10^3/uL (2.7-7.7); Neutrophil % 69.2 % (47-70); Platelet Count 228 K/mm3 (150-450); RBC Distribution Width SD 49.1 fl (35.1-43.9); Red Blood Count 4.06 M/mm3 (4.2-5.4); White Blood Count 6.5 K/mm3 (4.4-11.0)
[2025-02-06 13:36] LABS: ALB/GLOB Ratio 1.4 RATIO (0.9-2.4); AST(SGOT) 19 U/L (<=31); Alanine Aminotransfer ALT/SGPT 19 U/L (<=34); Albumin, Serum 3.9 g/dL (3.4-4.8); Alkaline Phosphatase 88 U/L (35-104); Anion Gap 11 (5-15); BUN 24 mg/dL (4-19); BUN/Creat Ratio 19.8 RATIO (10-20); Calcium,Total 9.4 mg/dL (7.6-11.0); Carbon Dioxide 25.5 mmol/L (21.0-32.0); Chloride 103 mmol/L (98-108); Cholesterol 192 mg/dL (<=200); Creatinine, Serum 1.21 mg/dL (0.70-1.20); EST Glomerular Filtration Rate 44 (>60); Globulin 2.8 g/dL (2.2-4.2); Glucose 93 mg/dL (70-99); High Density Lipoprotein 94 mg/dL; Low Density Lipoprotein Calc. 90 mg/dL; Potassium 4.5 mmol/L (3.3-5.1); Protein, Total 6.8 g/dL (5.9-8.4); Sodium Level 140 mmol/L (133-145); Total Bilirubin 0.99 mg/dL (0.00-1.30); Triglycerides 40 mg/dL; Very Low Density Lipoprotein 8 mg/dL (5-40); Vitamin D,25 Hydroxy 74.6 ng/mL (30-100); cholesterol:hdl ratio screen 2.04
== END | disposition home or self-care (01) ==
LOC: MTLAB 09:12
PROVIDERS: PCP Internal Medicine; Referring Provider Internal Medicine; Visit Provider Internal Medicine
DX: I25.10 Atherosclerotic heart disease of native coronary artery without angina pectoris (principal); E04.2 Nontoxic multinodular goiter; G47.10 Hypersomnia, unspecified; Z86.73 Personal history of transient ischemic attack (TIA), and cerebral infarction without residual deficits; Z78.0 Asymptomatic menopausal state; M85.80 Other specified disorders of bone density and structure, unspecified site
CPT/HCPCS: 36415; 80053; 80061; 82306; 84443; 85025

== ENCOUNTER → 2025-02-12 | Outpatient (CLI) | payer MEDICARE, SELFPAY ==
--- NOTE | 2025-02-12 13:57 | US_ITS ---
PROCEDURE: THYROID (USTHY), 02/12/2025 REASON FOR EXAM: THYROID NODULES TECHNIQUE: Grayscale and color Doppler imaging of the thyroid was performed. COMPARISON: 12/04/2019 ; note that images only are available for review, the report is not available at the time of the dictation. FINDINGS: Right lobe measures 4.7 x 1.7 x 1.6cm. Essentially homogeneous background echotexture. No abnormal vascularity. Nodules as below: *8 x 9 x 5 mm, mostly solid, isoechoic, TI-RADS 3. *5 x 8 x 5 mm, solid, isoechoic, TI-RADS 3. *8 x 7 x 7 mm, solid, mildly hypoechoic, TI-RADS 4. *Additional tiny nodules and cysts. Left lobe measures 4.9 x 1.4 x 2.1 cm. Essentially homogeneous background echotexture. No abnormal vascularity. Nodules as below: *12 x 10 x 8 mm, mostly solid, mostly isoechoic, TI-RADS 3. *13 x 9 x 11 mm, solid, hypoechoic, TI-RADS 4. Previously 11 x 9 x 9 mm. *9 x 7 x 5 mm, mostly solid, isoechoic, TI-RADS 3. *Additional tiny nodules and cysts. Isthmus measures 3 mm in thickness. US/Thyroid IMPRESSION: 1. Assessment is TI-RADS 4. No nodules currently meet criteria for FNA. Follow -up is recommended as per the below for a 13 mm TI-RADS 4 nodule on the LEFT. 2. Normal size gland with essentially unremarkable background echotexture. No abnormal vascularity. Management recommendations for TI-RADS 3 findings: FNA if = 2.5 cm; Follow if = 1.5 cm at 1, 3, and 5 years. Management recommendations for TI-RADS 4 findings: FNA if = 1.5 cm; Follow if = 1 cm at 1, 2, 3, and 5 years. Enlargment is defined as ?20% increase in at least two nodule dimensions, with a minimal increase of 2 mm or ?50% or greater increase in volume. Recommendations per ACR Thyroid Imaging, Reporting and Data System (TI-RADS): Radha bonilla Paper of the ACR TI-RADS Committee, 2017 ([email or web address].eROI.com/retrieve/[email or web address]) Reading Location: [id number]
== END | disposition home or self-care (01) ==
PROVIDERS: PCP Internal Medicine; Referring Provider Internal Medicine; Visit Provider Internal Medicine
DX: E04.2 Nontoxic multinodular goiter (principal)
CPT/HCPCS: 76536

== ENCOUNTER → 2025-02-19 | Outpatient (CLI) | payer MEDICARE, SELFPAY ==
--- NOTE | 2025-02-19 12:45 | BI_ITS ---
EXAM: SCRN MAMM (CAD)W/NAYLA BILAT DATE: 02/19/2025 CLINICAL HISTORY: F, Age 84 y/o , SCREENING BREAST CANCER RISK ASSESSMENT: Not reported TECHNIQUE: Bilateral screening digital breast tomosynthesis with 2D and 3D images. Computer aided detection. COMPARISON: Prior exam(s) were compared FINDINGS: TISSUE DENSITY: The breast tissue is heterogenously dense, which may obscure small masses. Bilateral Breast Mammographic Findings: No suspicious masses, calcifications or other abnormalities are identified. BI/SCRN MAMM (CAD)W/NAYLA BILAT IMPRESSION: OVERALL FINAL ASSESSMENT: BIRADS 1 NEGATIVE RECOMMENDATION: Routine annual follow-up in 1 Year A letter with findings and recommendations will be mailed to the patient. Reading Location: [id number]
== END | disposition home or self-care (01) ==
LOC: OPBI 12:36
PROVIDERS: PCP Internal Medicine; Referring Provider Internal Medicine; Visit Provider Internal Medicine
DX: Z12.31 Encounter for screening mammogram for malignant neoplasm of breast (principal)
CPT/HCPCS: 77063; 77067